=== PATIENT | female | born 1970 | race Caucasian/White ===

== ENCOUNTER 2018-06-18 10:19 | Emergency (ER) | payer SELFPAY ==
--- OUTSIDE RECORDS SUMMARY | 2018-06-18 10:21 | XMS REPORT ---
:1970 [facility] Address [address] [place] [address] [address] [address] Care Team Providers Name Role Phone DR MISTI GRACIA Unavailable Unavailable Problems This patient has no known problems. Allergies, Adverse Reactions, Alerts This patient has no known allergies or adverse reactions. Medications This patient has no known medications. Encounters Start End Encounter Admission Attending Care Care Encounter Date/Time Date/Time Type Type Clinicians Facility Department ID 2017-08-04 Inpatient C YAN GRACIA [facility] [place] [id number] 10:00:00 MISTI
[2018-06-18] MEDS ORDERED: ASPIRIN 81 MG CHEWABLE TABLET ONE (11:22)
[2018-06-18 11:26] LABS: Absolute Lymphocytes (CBC) 2.2 K/uL (0.7-4.9); Absolute Monocytes 0.7 K/uL (0.1-1.3); Absolute Neutrophil 5.7 K/uL (1.8-8.0); Basophils % 0.9 % (0-1.3); Eosinophils % 2.8 % (0-4.4); Hematocrit 42.3 % (36.0-45.0); MCH 27.9 pg (27.0-35.0); MCV 85.7 fL (80-100); MPV 10.4 fL (7.6-11.3); Monocytes % 7.4 % (3.3-12.3); RBC Red Blood Cell Count 4.93 M/uL (3.86-4.86)
--- NOTE | 2018-06-18 11:41 | RAD REPORT ---
EXAM DESCRIPTION: RAD - Chest Single View - 06/18/2018 11:33 am CLINICAL HISTORY: CHEST PAIN Chest pain. COMPARISON: Chest Pa And Lat (2 Views) dated 04/12/2017; CHEST PA AND LAT 2 VIEW dated 05/04/2011 FINDINGS: Portable technique limits examination quality. The lungs are grossly clear. The heart is normal in size. No displaced fractures. IMPRESSION: No acute intrathoracic process suspected.
[2018-06-18 11:51] LABS: Albumin 3.4 g/dL (3.4-5.0); Bilirubin Direct 0.1 mg/dL (0-0.2); Bilirubin Total 0.4 mg/dL (0.2-1.0); Magnesium 2.2 mg/dL (1.8-2.4); Potassium 4.1 mmol/L (3.5-5.1); Protein, Total 7.2 g/dL (6.4-8.2)
[2018-06-18 11:54] LABS: Protime INR 1.06
[2018-06-18 13:11] LABS: Urine Blood NEGATIVE (NEG); Urine Glucose NEGATIVE (NEG); Urine Protein 1+ (NEG); Urine Specific Gravity 1.015 (1.005-1.030); Urine pH 7.5 (5.0-7.0)
--- NOTE | 2018-06-18 13:23 | EKG ---
Test Date: 2018-06-18 Test Time: 11:06:04 Commercial Cleaner: HERMINIA MEASUREMENT RESULTS: Intervals: Rate: 87 [place]: 182 QRSD: 90 QT: 376 QTc: 452 [place]: P: -1 [place]: 182 QRS: -13 T: -4 INTERPRETIVE STATEMENTS: Normal sinus rhythm Normal ECG Compared to ECG 05/04/2011 15:10:44 no significant change from previous ECG Electronically Signed On 06-18-18 13:22:51 CDT by Christian Watson
--- NOTE | 2018-06-18 14:36 | EDPHYS ---
Physician Documentation [facility] Name: Kamila Zavala Age: 48 yrs Sex: Female : 1970 Arrival Date: 06/18/2018 Time: 10:21 Bed 15 Private MD: None, None ED Physician Lyle Vaz HPI: 06/18 11:46 This 48 yrs old Female presents to ER via Ambulatory with complaints of jr8 Shortness Of Breath - Chest Pain. 11:46 The patient or guardian reports chest pain that is located primarily in the substernal jr8 area. Onset: acutely, this morning, today, at 05:00. The pain radiates to right neck. Associated signs and symptoms: Pertinent positives: shortness of breath. The chest pain is described as a pressure. Duration: The patient or guardian reports a single episode. Modifying factors: The symptoms are alleviated by nothing. the symptoms are aggravated by nothing. Severity of pain: At its worst the pain was moderate in the emergency department the pain has improved. The patient has experienced a previous episode. The patient has not recently seen a physician. Patient stated that she woke up this AM with chest tightness and shortness of breath. Tightness was intense for a few minutes then relieved but still with tightness feeling currently. Has had this once before many years ago. Stated that she was observed in hospital but nothing acute was found . 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 - Social history:: Smoking status: Patient/guardian denies using tobacco. - Ebola Screening: : No symptoms or risks identified at this time. ROS: 11:46 Eyes: Negative for injury, pain, redness, and discharge, ENT: Negative for injury, jr8 pain, and discharge, Neck: Negative for injury, pain, and swelling, Abdomen/GI: Negative for abdominal pain, nausea, vomiting, diarrhea, and constipation, Back: Negative for injury and pain, MS/Extremity: Negative for injury and deformity, Skin: Negative for injury, rash, and discoloration, Neuro: Negative for headache, weakness, numbness, tingling, and seizure. 11:46 Cardiovascular: Positive for chest pain, Negative for edema, orthopnea, palpitations, paroxysmal nocturnal dyspnea. 11:46 Respiratory: Positive for shortness of breath, Negative for cough, sputum production, wheezing. Exam: 11:46 Eyes: Pupils equal round and reactive to light, extra-ocular motions intact. Lids and jr8 lashes normal. Conjunctiva and sclera are non-icteric and not injected. Cornea within normal limits. Periorbital areas with no swelling, redness, or edema. ENT: Nares patent. No nasal discharge, no septal abnormalities noted. Tympanic membranes are normal and external auditory canals are clear. Oropharynx with no redness, swelling, or masses, exudates, or evidence of obstruction, uvula midline. Mucous membranes moist. Neck: Trachea midline, no thyromegaly or masses palpated, and no cervical lymphadenopathy. Supple, full range of motion without nuchal rigidity, or vertebral point tenderness. No Meningismus. Cardiovascular: Regular rate and rhythm with a normal S1 and S2. No gallops, murmurs, or rubs. Normal PMI, no JVD. No pulse deficits. Respiratory: Lungs have equal breath sounds bilaterally, clear to auscultation and percussion. No rales, rhonchi or wheezes noted. No increased work of breathing, no retractions or nasal flaring. Abdomen/GI: Soft, non-tender, with normal bowel sounds. No distension or tympany. No guarding or rebound. No evidence of tenderness throughout. Back: No spinal tenderness. No costovertebral tenderness. Full range of motion. Skin: Warm, dry with normal turgor. Normal color with no rashes, no lesions, and no evidence of cellulitis. MS/ Extremity: Pulses equal, no cyanosis. Neurovascular intact. Full, normal range of motion. Neuro: Awake and alert, GCS 15, oriented to person, place, time, and situation. Cranial nerves II-XII grossly intact. Motor strength 5/5 in all extremities. Sensory grossly intact. Cerebellar exam normal. Normal gait. Vital Signs: 10:55 BP 159 / 100; Pulse 89; Resp 16; Temp 97.7; Pulse Ox 100% on R/A; Pain 9/10; hb 12:38 BP 119 / 79; Pulse 72; Resp 20; Pulse Ox 99% on R/A; mb3 13:47 BP 123 / 95; Pulse 75; Resp 18; Pulse Ox 96% on R/A; mb3 14:54 BP 128 / 76; Pulse 72; Resp 18; Pulse Ox 97% on R/A; mb3 MDM: 11:02 Patient medically screened. jr8 14:33 Differential diagnosis: acute myocardial infarction, anxiety, chest wall pain, jr8 cholecystitis, Cholelithiasis gastritis, gastroesophageal reflux disease (GERD), pancreatitis, pneumonia, pulmonary embolus, thoracic aortic disection. The patient was given aspirin in the Emergency Department. Data reviewed: vital signs, nurses notes, lab test result(s), EKG, radiologic studies, plain films, and as a result, I will discharge patient. Data interpreted: Pulse oximetry: on room air is 96 %. Interpretation: normal. Counseling: I had a detailed discussion with the patient and/or guardian regarding: the historical points, exam findings, and any diagnostic results supporting the discharge/admit diagnosis, lab results, radiology results, the need for outpatient follow up, a travel accommodation inspector, to return to the emergency department if symptoms worsen or persist or if there are any questions or concerns that arise at home. ED course: Patient currently without pain and back to baseline. Will send home to f/u with Cardiology. If worse to come back . 06/18 11:05 Order name: Basic Metabolic Panel; Complete Time: 11:52 06/18 11:05 Order name: CBC with Diff; Complete Time: 12:04 06/18 11:05 Order name: LFT's; Complete Time: 11:52 06/18 11:05 Order name: Magnesium; Complete Time: 11:52 06/18 11:05 Order name: NT PRO-BNP; Complete Time: 11:52 06/18 11:05 Order name: PT-INR; Complete Time: 12:04 06/18 11:05 Order name: Troponin (emerg Dept Use Only); Complete Time: 11:51 06/18 11:05 Order name: XRAY Chest (1 view); Complete Time: 11:42 06/18 11:52 Order name: LAB Add On [facility] 06/18 12:29 Order name: D-Dimer; Complete Time: 12:42 EDWY 06/18 12:41 Order name: Urine Dipstick--Ancillary (enter results); Complete Time: 13:22 ag 06/18 12:41 Order name: Urine --Ancillary (enter results); Complete Time: 13:22 ag 06/18 13:22 Order name: Troponin (emerg Dept Use Only); Complete Time: 14:33 [facility] 06/18 11:05 Order name: EKG; Complete Time: 11:05 [facility] 06/18 11:05 Order name: Cardiac monitoring; Complete Time: 14:59 [facility] 06/18 11:05 Order name: EKG - Nurse/Tech; Complete Time: 14:59 [facility] 06/18 11:05 Order name: IV Saline Lock; Complete Time: 14:59 [facility] 06/18 11:05 Order name: Labs collected and sent; Complete Time: 14:59 [facility] 06/18 11:05 Order name: O2 Per Protocol; Complete Time: 14:59 [facility] 06/18 11:05 Order name: O2 Sat Monitoring; Complete Time: 15:00 [facility] 06/18 11:05 Order name: Urine Dipstick-Ancillary (obtain specimen); Complete Time: 12:33 Administered Medications: 11:24 Drug: Aspirin Chewable Tablet 324 mg Route: PO; mb3 14:58 Follow up: Response: No adverse reaction mb3 Disposition: 15:30 Co-signature as Attending Physician, Lyle Vaz MD I agree with the assessment and [facility] plan of care. Disposition: 06/18/18 14:36 Discharged to Home. Impression: Chest pain, unspecified. - Condition is Stable. - Discharge Instructions: Nonspecific Chest Pain, Aspirin and Your Heart. - Medication Reconciliation Form, Thank You Letter, Antibiotic Education, Prescription Opioid Use, Work release form form. - Follow up: Christian Watson MD; When: 2 - 3 days; Reason: Recheck today's complaints, Continuance of care, Re-evaluation by your physician. - Problem is new. - Symptoms have improved. Signatures: Dispatcher [employer] [facility] Lyle Vaz MD MD cha Roszak, Josh, PA PA 8 Adair, Kadie, RN RN hb Milan, Devin, RN RN mb3 Corrections: (The following items were deleted from the chart) 15:00 14:36 06/18/2018 14:36 Discharged to Home. Impression: Chest pain, unspecified. mb3 Condition is Stable. Forms are Medication Reconciliation Form, Thank You Letter, Antibiotic Education, Prescription Opioid Use. Follow up: Christian Watson; When: 2 - 3 days; Reason: Recheck today's complaints, Continuance of care, Re-evaluation by your physician. Problem is new. Symptoms have improved. jr8
--- NOTE | 2018-06-18 14:36 | ER ---
Nurse's Notes [facility] Name: Kaimla Zavala Age: 48 yrs Sex: Female : 1970 Arrival Date: 06/18/2018 Time: 10:21 Bed 15 Private MD: None, None Diagnosis: Chest pain, unspecified Presentation: 06/18 10:53 Presenting complaint: Patient states: SOB and chest tightness x 3 days, swelling of hb extremities upon waking today. Denies cough/fever. Transition of care: patient was not received from another setting of care. Onset of symptoms was June 15, 2018. Risk Assessment: Do you want to hurt yourself or someone else? Patient reports no desire to harm self or others. Initial Sepsis Screen: Does the patient meet any 2 criteria? No. Patient's initial sepsis screen is negative. Does the patient have a suspected source of infection? No. Patient's initial sepsis screen is negative. Care prior to arrival: None. 10:53 Method Of Arrival: Ambulatory hb 10:53 Acuity: PHOEBE 3 hb Triage Assessment: 11:47 General: Appears in no apparent distress. comfortable. General: Appears Behavior is mb3 calm, cooperative, appropriate for age. EENT: No deficits noted. Respiratory: Onset: The symptoms/episode began/occurred 3 days ago. Respiratory: Reports shortness of breath at rest the patient has mild shortness of breath. 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 - Social history:: Smoking status: Patient/guardian denies using tobacco. - Ebola Screening: : No symptoms or risks identified at this time. Screenin:47 Abuse screen: Denies threats or abuse. Nutritional screening: No deficits noted. mb3 Tuberculosis screening: No symptoms or risk factors identified. Fall Risk None identified. Assessment: 11:44 General: Appears in no apparent distress. comfortable, obese, Behavior is calm, mb3 cooperative, appropriate for age. Pain: Complains of pain in chest. Neuro: No deficits noted. Cardiovascular: Reports chest pain, shortness of breath, Heart tones present Capillary refill < 3 seconds Patient's skin is warm and dry. Pulses are all present. Rhythm is sinus rhythm. Respiratory: Airway is patent Respiratory effort is even, unlabored, Respiratory pattern is regular, symmetrical, Breath sounds are clear bilaterally. Breath sounds are diminished in right middle lobe, left lower lobe, right lower lobe, left posterior lower lobe, right posterior middle lobe and right posterior lower lobe. GI: Abdomen is obese, Bowel sounds present X 4 quads. Abd is soft and non tender X 4 quads. : No signs and/or symptoms were reported regarding the genitourinary system. EENT: No signs and/or symptoms were reported regarding the EENT system. Musculoskeletal: No signs and/or symptoms reported regarding the musculoskeletal system. 13:48 Reassessment: Patient appears in no apparent distress at this time. Patient and/or mb3 family updated on plan of care and expected duration. Pain level reassessed. Patient is alert, oriented x 3, equal unlabored respirations, skin warm/dry/pink. Patient denies pain at this time. Patient states feeling better. Patient states symptoms have improved. 13:48 Reassessment: second trop drawn and sent. mb3 Vital Signs: 10:55 BP 159 / 100; Pulse 89; Resp 16; Temp 97.7; Pulse Ox 100% on R/A; Pain 9/10; hb 12:38 BP 119 / 79; Pulse 72; Resp 20; Pulse Ox 99% on R/A; mb3 13:47 BP 123 / 95; Pulse 75; Resp 18; Pulse Ox 96% on R/A; mb3 14:54 BP 128 / 76; Pulse 72; Resp 18; Pulse Ox 97% on R/A; mb3 ED Course: 10:21 Patient arrived in ED. sb2 10:22 None, None is Private Physician. sb2 10:54 Triage completed. hb 10:55 Arm band placed on left wrist. hb 11:02 Jaren Vega PA is PHCP. jr8 11:02 Lyle Vaz MD is Attending Physician. jr8 11:06 Devin Milan RN is Primary Nurse. mb3 11:19 EKG done, by quality assurance technician. reviewed by Jaren BUTTS. at1 11:25 Inserted saline lock: 22 gauge in right antecubital area, using aseptic technique. mb3 Blood collected. 11:32 X-ray completed. Portable x-ray completed in exam room. Patient tolerated procedure jb2 well. 11:33 XRAY Chest (1 view) In Process Unspecified. EDMS 11:46 Patient has correct armband on for positive identification. Placed in gown. Bed in low mb3 position. Call light in reach. Side rails up X 1. dry curer on. Pulse ox on. NIBP on. 12:32 Urine collected: clean catch specimen, bart colored. 5 14:36 Christian Watson MD is Referral Physician. jr8 14:55 No provider procedures requiring assistance completed. IV discontinued, intact, mb3 bleeding controlled, No redness/swelling at site. Pressure dressing applied. 14:58 LAB Add On Sent. mb3 Administered Medications: 11:24 Drug: Aspirin Chewable Tablet 324 mg Route: PO; mb3 14:58 Follow up: Response: No adverse reaction mb3 Outcome: 14:36 Discharge ordered by . jr8 14:56 Discharged to home ambulatory. mb3 14:56 Condition: stable 14:56 Discharge instructions given to patient, Instructed on discharge instructions, follow up and referral plans. Demonstrated understanding of instructions, follow-up care. 15:00 Patient left the ED. mb3 Signatures: Dispatcher [employer] EDMN James Costello jb2 Jaren Vega PA PA jr8 Melani valentino, radio television announcer EKG Tat1 Kadie Adair, RN RN Shaila Fox 5 Marysol Noyola 2 Devin Milan RN RN mb3
== END 2018-06-18 15:00 | disposition home or self-care (01) ==
LOC: ER 10:19
DX: R07.9 Chest pain, unspecified (principal); K21.9 Gastro-esophageal reflux disease without esophagitis
CPT/HCPCS: 36415; 71045; 80048; 80076; 81003; 81025; 83735; 83880; 84484; 85025; 85379; 85610; 93005; 99284

== ENCOUNTER 2018-09-04 07:53 | Emergency (ER) | payer SELFPAY ==
--- OUTSIDE RECORDS SUMMARY | 2018-09-04 08:23 | XMS REPORT ---
:1970 [facility] Address [address] [place] [address] [address] Care Team Providers Name Role Phone DR MISTI GRACIA Unavailable Unavailable Problems This patient has no known problems. Allergies, Adverse Reactions, Alerts This patient has no known allergies or adverse reactions. Medications This patient has no known medications. Encounters Start End Encounter Admission Attending Care Care Encounter Date/Time Date/Time Type Type Clinicians Facility Department ID 2017-08-04 Inpatient C YAN GRACIA [facility] [place] [id number] 10:00:00 MISTI
[2018-09-04 08:38] LABS: Absolute Lymphocytes (CBC) 1.9 K/uL (0.7-4.9); Absolute Monocytes 0.3 K/uL (0.1-1.3); Absolute Neutrophil 2.9 K/uL (1.8-8.0); Basophils % 0.8 % (0-1.3); Lymphocytes % 34.3 % (15.3-44.8); MCH 28.7 pg (27.0-35.0); MCV 85.7 fL (80-100); MPV 10.7 fL (7.6-11.3); Monocytes % 6.1 % (3.3-12.3); RBC Red Blood Cell Count 4.66 M/uL (3.86-4.86)
[2018-09-04 08:51] LABS: BUN Blood Urea Nitrogen 8 mg/dL (7-18); Bicarbonate 29 mmol/L (21-32); Glucose Level 87 mg/dL (74-106); Sodium Level 143 mmol/L (136-145); Troponin (Emerg Dept Use Only) < 0.02 ng/mL (0.0-0.045)
[2018-09-04] MEDS ORDERED: IBUPROFEN 400 MG TAB ONE (08:56)
--- NOTE | 2018-09-04 09:43 | ER ---
Nurse's Notes [facility] Name: Kamila Zavala Age: 48 yrs Sex: Female : 1970 Arrival Date: 09/04/2018 Time: 07:56 Bed 5 Private MD: None, None Diagnosis: Dorsalgia Presentation: 09/04 08:02 Presenting complaint: Patient states: BACK PAIN x YEARS. Transition of care: patient bp was not received from another setting of care. Onset of symptoms is unknown. Risk Assessment: Do you want to hurt yourself or someone else? Patient reports no desire to harm self or others. Initial Sepsis Screen: Does the patient meet any 2 criteria? No. Patient's initial sepsis screen is negative. Does the patient have a suspected source of infection? No. Patient's initial sepsis screen is negative. Care prior to arrival: None. 08:02 Method Of Arrival: Ambulatory bp 08:02 Acuity: PHOEBE 5 bp Triage Assessment: 08:03 General: Appears in no apparent distress. uncomfortable, obese, Behavior is bp cooperative, appropriate for age, anxious. Pain: Complains of pain in back. EENT: No deficits noted. Neuro: Level of Consciousness is awake, alert, obeys commands, Oriented to person, place, time, situation, Appropriate for age. Cardiovascular: No deficits noted. Respiratory: Airway is patent Respiratory effort is even, unlabored, Respiratory pattern is regular, symmetrical. GI: No signs and/or symptoms were reported involving the gastrointestinal system. : No signs and/or symptoms were reported regarding the genitourinary system. Derm: No deficits noted. Musculoskeletal: Circulation, motion, and sensation intact. Range of motion: intact in all extremities. 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 - Social history:: Smoking status: Patient/guardian denies using tobacco. - Ebola Screening: : Patient negative for fever greater than or equal to 101.5 degrees Fahrenheit, and additional compatible Ebola Virus Disease symptoms Patient denies exposure to infectious person Patient denies travel to an Ebola-affected area in the 21 days before illness onset No symptoms or risks identified at this time. Screenin:05 Abuse screen: Denies threats or abuse. Denies injuries from another. Nutritional bp screening: No deficits noted. Tuberculosis screening: No symptoms or risk factors identified. Fall Risk None identified. Assessment: 08:45 General: Appears uncomfortable, Behavior is calm, cooperative. Pain: Complains of pain ss in right mid back Pain currently is 10 out of 10 on a pain scale. at worst was 10 out of 10 on a pain scale. Pain began "years, I've been seen in [facility], [facility] and this ER and I wish they would tell me what's going on. I don't have insurance so I haven't been able to follow up. They just keep giving me pain medicine and at one time they told me I had arthritis." Pt reports that pain flares up at times and at times goes away. This "flare up" began 2 days ago. Is continuous, Alleviated by repositioning, applying pressure to affected area. Neuro: Level of Consciousness is awake, alert, obeys commands, Oriented to person, place, time, situation, Shredder/Granulator Operator are equal bilaterally Facial symmetry appears normal. Cardiovascular: Capillary refill < 3 seconds is brisk in bilateral fingers. Respiratory: Airway is patent Trachea midline Respiratory effort is even, unlabored, Respiratory pattern is regular, symmetrical, Breath sounds are clear bilaterally. GI: Patient currently denies abdominal pain, diarrhea, nausea, vomiting. : No signs and/or symptoms were reported regarding the genitourinary system. EENT: Nares are clear Oral mucosa is moist. Throat is clear. Derm: Skin is intact, is healthy with good turgor, Skin is dry, Skin is pink, warm \\T\\ dry. normal. Musculoskeletal: Circulation, motion, and sensation intact. Range of motion: intact in all extremities, Swelling absent. 08:54 Reassessment: Motrin and ICE pack given to address pain. Patient is grateful. Call ss light remains within reach. 09:46 Reassessment: Pt back from CT. Discharge ordered however CT scan results are not ss resulted yet. Awaiting results. Vital Signs: 08:03 BP 145 / 89; Pulse 71; Resp 18; Temp 98; Pulse Ox 98% ; Weight 127.01 kg; Height 5 ft. bp 9 in. (175.26 cm); 08:45 BP 126 / 93; Pulse 65; Resp 15; Pulse Ox 97% on R/A; Pain 10/10; ss 08:03 Body Mass Index 41.35 (127.01 kg, 175.26 cm) bp Micki Coma Score: 08:45 Eye Response: spontaneous(4). Verbal Response: oriented(5). Motor Response: obeys ss commands(6). Total: 15. ED Course: 07:56 Patient arrived in ED. mr 07:56 None, None is Private Physician. mr 08:03 Triage completed. bp 08:03 Arm band placed on. bp 08:05 Patient has correct armband on for positive identification. Bed in low position. Call bp light in reach. Side rails up X2. 08:07 Rancho Smith MD is Attending Physician. gs 08:08 Uday De La Cruz, KIRILL is Primary Nurse. sg 08:25 Initial lab(s) drawn, by me, sent to lab. Inserted saline lock: 22 gauge in right jb1 antecubital area, using aseptic technique. Blood collected. 08:30 EKG done, by critical care technician. reviewed by Rancho Smith MD. at1 08:36 X-ray completed. Portable x-ray completed in exam room. Patient tolerated procedure sw well. 08:37 XRAY Chest (1 view) In Process Unspecified. EDMS 08:53 ICE pack applied to mid-lower back for comfort. ss 09:42 CT completed. started new iv left ac. Patient moved to CT via stretcher. jg6 09:43 CT Chest W/ Con In Process Unspecified. EDMS 10:03 No provider procedures requiring assistance completed. IV discontinued, intact, ss bleeding controlled, No redness/swelling at site. Pressure dressing applied. Administered Medications: 08:55 Drug: Motrin 800 mg Route: PO; ss 10:07 Follow up: Response: No adverse reaction; Pain is decreased ss Outcome: 09:42 Discharge ordered by . gs 10:03 Discharged to home ambulatory. ss 10:03 Condition: good 10:03 Discharge instructions given to patient, Instructed on discharge instructions, follow up and referral plans. medication usage, Demonstrated understanding of instructions, follow-up care, Prescriptions given X 2. 10:07 Patient left the ED. ss Signatures: Dispatcher [employer] EDMS Matthew Wood jb1 Uday De La Cruz, RN RN sg Chambers, Macy mr Macho, Shayna, RN RN Melani Hernandez, freezer machine operator EKG Tat1 Prerna Griffith Gregory, MD MD gs Peltier, Brian, RN RN bp Garcia, Chichi j6
--- NOTE | 2018-09-04 09:43 | EDPHYS ---
Physician Documentation [facility] Name: Kamila Zavala Age: 48 yrs Sex: Female : 1970 Arrival Date: 09/04/2018 Time: 07:56 Bed 5 Private MD: None, None ED Physician Rancho Smith HPI: 09/04 09:01 This 48 yrs old Female presents to ER via Ambulatory with complaints of Back gs Pain. 09:01 The patient presents with pain that is acute. The symptoms are located in the T9, T10 gs and T11. Onset: The symptoms/episode began/occurred 2 day(s) ago. The pain does not radiate. Associated signs and symptoms: Pertinent negatives: dysuria, incontinence, numbness, vomiting. Modifying factors: the patient symptoms are aggravated by movement. Severity of symptoms: At their worst the symptoms were moderate, in the emergency department the symptoms are unchanged. The patient has experienced similar episodes in the past, multiple times. says got diaphoretic when experienced pain yesterday in car while driving.. 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 - Social history:: Smoking status: Patient/guardian denies using tobacco. - Ebola Screening: : Patient negative for fever greater than or equal to 101.5 degrees Fahrenheit, and additional compatible Ebola Virus Disease symptoms Patient denies exposure to infectious person Patient denies travel to an Ebola-affected area in the 21 days before illness onset No symptoms or risks identified at this time. ROS: 09:01 All other systems are negative. gs Exam: 09:01 Head/Face: Normocephalic, atraumatic. Eyes: Pupils equal round and reactive to light, gs extra-ocular motions intact. Lids and lashes normal. Conjunctiva and sclera are non-icteric and not injected. Cornea within normal limits. Periorbital areas with no swelling, redness, or edema. ENT: Nares patent. No nasal discharge, no septal abnormalities noted. Tympanic membranes are normal and external auditory canals are clear. Oropharynx with no redness, swelling, or masses, exudates, or evidence of obstruction, uvula midline. Mucous membranes moist. Neck: Trachea midline, no thyromegaly or masses palpated, and no cervical lymphadenopathy. Supple, full range of motion without nuchal rigidity, or vertebral point tenderness. No Meningismus. Chest/axilla: Normal chest wall appearance and motion. Nontender with no deformity. No lesions are appreciated. Cardiovascular: Regular rate and rhythm with a normal S1 and S2. No gallops, murmurs, or rubs. Normal PMI, no JVD. No pulse deficits. Respiratory: Lungs have equal breath sounds bilaterally, clear to auscultation and percussion. No rales, rhonchi or wheezes noted. No increased work of breathing, no retractions or nasal flaring. Abdomen/GI: Soft, non-tender, with normal bowel sounds. No distension or tympany. No guarding or rebound. No evidence of tenderness throughout. Skin: Warm, dry with normal turgor. Normal color with no rashes, no lesions, and no evidence of cellulitis. MS/ Extremity: Pulses equal, no cyanosis. Neurovascular intact. Full, normal range of motion. Neuro: Awake and alert, GCS 15, oriented to person, place, time, and situation. Cranial nerves II-XII grossly intact. Motor strength 5/5 in all extremities. Sensory grossly intact. Cerebellar exam normal. Normal gait. 09:01 Constitutional: The patient appears alert, awake. 09:01 ECG was reviewed by the Attending Physician. 09:01 Back: pain, that is mild, of the right mid back, vertebral tenderness, is appreciated at T7 and T8. Vital Signs: 08:03 BP 145 / 89; Pulse 71; Resp 18; Temp 98; Pulse Ox 98% ; Weight 127.01 kg; Height 5 ft. bp 9 in. (175.26 cm); 08:45 BP 126 / 93; Pulse 65; Resp 15; Pulse Ox 97% on R/A; Pain 10/10; ss 08:03 Body Mass Index 41.35 (127.01 kg, 175.26 cm) bp [place] Coma Score: 08:45 Eye Response: spontaneous(4). Verbal Response: oriented(5). Motor Response: obeys ss commands(6). Total: 15. MDM: 08:12 Patient medically screened. 09:01 Differential diagnosis: chronic back pain, Ligament Injury Pyelonephritis. Data reviewed: vital signs, nurses notes. Response to treatment: the patient's symptoms have markedly improved after treatment, and as a result, I will discharge patient. 09:41 Counseling: I had a detailed discussion with the patient and/or guardian regarding: the gs historical points, exam findings, and any diagnostic results supporting the discharge/admit diagnosis, the presence of at least one elevated blood pressure reading (>120/80) during this emergency department visit, lab results, radiology results, the need for outpatient follow up. Special discussion: I have referred the patient to see his PCP for further evaluation of high blood pressure. 09/04 08:12 Order name: Basic Metabolic Panel; Complete Time: 08:57 09/04 08:12 Order name: CBC with Diff; Complete Time: 08:57 09/04 08:12 Order name: Troponin (emerg Dept Use Only); Complete Time: 08:57 09/04 08:12 Order name: XRAY Chest (1 view) 09/04 09:07 Order name: CT Chest W/ Con 09/04 08:12 Order name: EKG; Complete Time: 08:13 09/04 08:12 Order name: Cardiac monitoring; Complete Time: 08:26 09/04 08:12 Order name: EKG - Nurse/Tech; Complete Time: 08:26 09/04 08:12 Order name: IV Saline Lock; Complete Time: 08:26 09/04 08:12 Order name: Labs collected and sent; Complete Time: 08:26 09/04 08:12 Order name: O2 Per Protocol; Complete Time: 08:19 09/04 08:12 Order name: O2 Sat Monitoring; Complete Time: 08:19 gs EC:01 Rate is 7 beats/min. Rhythm is regular. [place] interval is normal. QRS interval is normal. gs QT interval is normal. T waves are Normal. No ST changes noted. Clinical impression: Normal ECG. Interpreted by me. Administered Medications: 08:55 Drug: Motrin 800 mg Route: PO; ss 10:07 Follow up: Response: No adverse reaction; Pain is decreased ss Disposition: 09/04/18 09:42 Discharged to Home. Impression: Dorsalgia. - Condition is Stable. - Discharge Instructions: Back Pain, Adult. - Prescriptions for Prednisone 20 mg Oral Tablet - take 1 tablet by ORAL route once daily for 5 days; 5 tablet. Tylenol- Codeine #4 300-60 mg Oral Tablet - take 1 tablet by ORAL route every 6 hours As needed; 6 tablet. - Work release form, Medication Reconciliation Form, Thank You Letter, Antibiotic Education, Prescription Opioid Use form. - Follow up: Private Physician; When: 2 - 3 days; Reason: Re-evaluation by your physician. Signatures: Dispatcher [employer] EDHI Shayna Pritchard RN RN ss Rancho Smith MD MD Isaac Downing RN RN bp Corrections: (The following items were deleted from the chart) 10:07 09:42 09/04/2018 09:42 Discharged to Home. Impression: Dorsalgia. Condition is Stable. ss Forms are Medication Reconciliation Form, Thank You Letter, Antibiotic Education, Prescription Opioid Use. Follow up: Private Physician; When: 2 - 3 days; Reason: Re-evaluation by your physician.
--- NOTE | 2018-09-04 10:10 | RAD REPORT ---
EXAM DESCRIPTION: CT - Thorax W/ Con - 09/04/2018 9:43 am CLINICAL HISTORY: Back pain, chest pain COMPARISON: CT imaging April 2011 TECHNIQUE: Dynamically enhanced 5 mm thick images of the chest were obtained during administration o f 100 mL non-ionic IV contrast. All CT scans are performed using dose optimization technique as appropriate and may include automated exposure control or mA/KV adjustment according to patient size. FINDINGS: No mass or infiltrate in the lung parenchyma. No pleural thickening or pleural effusion. N o pneumothorax. No chest wall mass or abnormal axillary lymphadenopathy. No abnormal mediastinal or hilar mass or lymphadenopathy seen. Moderately prominent degenerative changes are present throughout the midthoracic spine without an acu te vertebral body finding. Small sclerotic focus in the upper sternum has not changed since 2010. IMPRESSION: No acute or suspicious lung parenchymal finding. No mass or lymphadenopathy seen. Thoracic spine degenerative changes are present but no acute or destructive bone process identifiable .
--- NOTE | 2018-09-04 10:36 | RAD REPORT ---
EXAM DESCRIPTION: RAD - Chest Single View - 09/04/2018 8:38 am CLINICAL HISTORY: Chest pain COMPARISON: June 18 TECHNIQUE: AP portable chest image was obtained 0826 hours . FINDINGS: Lung volumes are low. No peripheral mass or consolidation suspected. Heart size and vascul ature are normal range for shallow inspiration portable exam. No measurable pleural effusion and no p neumothorax. No acute bony abnormality seen. No acute aortic findings suspected. IMPRESSION: No acute cardiopulmonary process. No significant change from comparison.
--- NOTE | 2018-09-04 12:11 | EKG ---
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
== END 2018-09-04 10:07 | disposition home or self-care (01) ==
LOC: ER 07:53
DX: M54.9 Dorsalgia, unspecified (principal); K21.9 Gastro-esophageal reflux disease without esophagitis
CPT/HCPCS: 36415; 71045; 71260; 80048; 84484; 85025; 93005; 99284; Q9967

== ENCOUNTER 2018-09-24 12:15 | Emergency (ER) | payer SELFPAY ==
--- OUTSIDE RECORDS SUMMARY | 2018-09-24 12:18 | XMS REPORT ---
:1970 [facility] Address [address] [place] [address] [address] Care Team Providers Name Role Phone DR MISTI GRACIA Unavailable Unavailable Problems This patient has no known problems. Allergies, Adverse Reactions, Alerts This patient has no known allergies or adverse reactions. Medications This patient has no known medications. Encounters Start End Encounter Admission Attending Care Care Encounter Date/Time Date/Time Type Type Clinicians Facility Department ID 2017-08-04 Inpatient C YAN GRACIA [facility] [place] [id number] 10:00:00 MISTI
--- NOTE | 2018-09-24 16:05 | ER ---
Nurse's Notes [facility] Name: Kamila Zavala Age: 48 yrs Sex: Female : 1970 Arrival Date: 09/24/2018 Time: 12:16 Bed 10 Private MD: Diagnosis: Thoracic spine pain Presentation: 09/24 13:06 Presenting complaint: Patient states: R sided back pain x 3 weeks, worse w/ movement or ph coughing , states " I came in for it a few weeks ago and they gave me Tylenol 3 but I can't take it because it gives me a rash.". Transition of care: patient was not received from another setting of care. Onset of symptoms. Risk Assessment: Do you want to hurt yourself or someone else? Patient reports no desire to harm self or others. Care prior to arrival: None. 13:06 Method Of Arrival: Ambulatory ph 13:06 Acuity: PHOEBE 4 ph 22:57 Initial Sepsis Screen: Does the patient meet any 2 criteria? No. Patient's initial tl3 sepsis screen is negative. Does the patient have a suspected source of infection? No. Patient's initial sepsis screen is negative. Triage Assessment: 22:57 General: Behavior is calm. 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 - Social history:: Smoking status: unknown. - Ebola Screening: : No symptoms or risks identified at this time. Screenin:45 Abuse screen: Denies threats or abuse. Nutritional screening: No deficits noted. tl3 Tuberculosis screening: No symptoms or risk factors identified. Fall Risk None identified. Assessment: 15:45 General: Appears uncomfortable. Pain: Complains of pain in between shoulder blades. tl3 Neuro: Level of Consciousness is awake. 15:45 Reassessment: pt reports that she has had this pain for months was seen here recently tl3 and had a CT done, has no PCP. Cardiovascular: No deficits noted. Vital Signs: 13:09 BP 135 / 82; Pulse 85; Resp 18; Temp 98.1; Pulse Ox 98% on R/A; Pain 7/10; ph 15:45 BP 128 / 72; Pulse 73; Resp 18; Pulse Ox 99% on R/A; tl3 ED Course: 12:16 Patient arrived in ED. as 13:08 Triage completed. ph 13:09 Arm band placed on Patient placed in waiting room, Patient notified of wait time. ph 15:15 Seda Vanessa [facility]C [facility] snw 15:15 Rancho Smith MD is Attending Physician. snw 15:30 Angi Pearl, RN is Primary Nurse. tl3 15:45 No provider procedures requiring assistance completed. Patient did not have IV access tl3 during this emergency room visit. 22:59 Patient has correct armband on for positive identification. tl3 Administered Medications: 16:16 Drug: Flexeril 10 mg Route: PO; tl3 16:17 Follow up: Response: Medication administered at discharge. tl3 16:16 Drug: Lenox 5 mg-325 mg 1 tabs Route: PO; tl3 16:16 Follow up: Response: Medication administered at discharge. tl3 Outcome: 16:05 Discharge ordered by . snw 16:40 Patient left the ED. tl3 22:59 Discharged to home ambulatory. tl3 22:59 Condition: good 22:59 Discharge instructions given to patient, Instructed on discharge instructions, follow up and referral plans. Demonstrated understanding of instructions, follow-up care. Signatures: Seda Vanessa FNP-C FNP-Jessenia Hammer Patricia, RN RN Angi Pearl, RN RN tl3
--- NOTE | 2018-09-24 16:05 | EDPHYS ---
Physician Documentation [facility] Name: Kamila Zavala Age: 48 yrs Sex: Female : 1970 Arrival Date: 09/24/2018 Time: 12:16 Bed 10 Private MD: ED Physician Rancho Smith HPI: 09/24 16:08 This 48 yrs old Female presents to ER via Ambulatory with complaints of Back snw Pain. 16:08 The patient presents with pain that is acute, with no known mechanism of injury, and snw decreased range of motion. The symptoms are located in the left subscapular area, right subscapular area and thoracic area. Onset: The symptoms/episode began/occurred 3 month(s) ago, and became persistent. The problem was sustained from unknown cause. Modifying factors: The patient symptoms are alleviated by nothing, the patient symptoms are aggravated by coughing, lifting, movement. Severity of symptoms: At their worst the symptoms were moderate. The patient has experienced similar episodes in the past, chronically. 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 - Social history:: Smoking status: unknown. - Ebola Screening: : No symptoms or risks identified at this time. ROS: 16:07 Constitutional: Negative for fever, chills, and weight loss, Eyes: Negative for injury, snw pain, redness, and discharge, ENT: Negative for injury, pain, and discharge, Neck: Negative for injury, pain, and swelling, Cardiovascular: Negative for chest pain, palpitations, and edema, Respiratory: Negative for shortness of breath, cough, wheezing, and pleuritic chest pain, Abdomen/GI: Negative for abdominal pain, nausea, vomiting, diarrhea, and constipation, : Negative for injury, bleeding, discharge, and swelling, MS/Extremity: Negative for injury and deformity, Skin: Negative for injury, rash, and discoloration, Neuro: Negative for headache, weakness, numbness, tingling, and seizure. 16:07 Back: Positive for decreased range of motion, pain at rest, pain with movement, of the left subscapular area, right subscapular area and thoracic area. Exam: 16:07 Constitutional: This is a well developed, well nourished patient who is awake, alert, snw and in no acute distress. Head/Face: Normocephalic, atraumatic. Eyes: Pupils equal round and reactive to light, extra-ocular motions intact. Lids and lashes normal. Conjunctiva and sclera are non-icteric and not injected. Cornea within normal limits. Periorbital areas with no swelling, redness, or edema. ENT: Nares patent. No nasal discharge, no septal abnormalities noted. Tympanic membranes are normal and external auditory canals are clear. Oropharynx with no redness, swelling, or masses, exudates, or evidence of obstruction, uvula midline. Mucous membranes moist. Neck: Trachea midline, no thyromegaly or masses palpated, and no cervical lymphadenopathy. Supple, full range of motion without nuchal rigidity, or vertebral point tenderness. No Meningismus. Chest/axilla: Normal chest wall appearance and motion. Nontender with no deformity. No lesions are appreciated. Cardiovascular: Regular rate and rhythm with a normal S1 and S2. No gallops, murmurs, or rubs. Normal PMI, no JVD. No pulse deficits. Respiratory: Lungs have equal breath sounds bilaterally, clear to auscultation and percussion. No rales, rhonchi or wheezes noted. No increased work of breathing, no retractions or nasal flaring. Abdomen/GI: Soft, non-tender, with normal bowel sounds. No distension or tympany. No guarding or rebound. No evidence of tenderness throughout. Skin: Warm, dry with normal turgor. Normal color with no rashes, no lesions, and no evidence of cellulitis. MS/ Extremity: Pulses equal, no cyanosis. Neurovascular intact. Full, normal range of motion. Neuro: Awake and alert, GCS 15, oriented to person, place, time, and situation. Cranial nerves II-XII grossly intact. Motor strength 5/5 in all extremities. Sensory grossly intact. Cerebellar exam normal. Normal gait. Psych: Awake, alert, with orientation to person, place and time. Behavior, mood, and affect are within normal limits. 16:07 Back: pain, that is moderate, of the left subscapular area, right subscapular area and thoracic area, CVA tenderness, is absent, muscle spasm, is appreciated in the left subscapular area and right subscapular area. Vital Signs: 13:09 BP 135 / 82; Pulse 85; Resp 18; Temp 98.1; Pulse Ox 98% on R/A; Pain 7/10; ph 15:45 BP 128 / 72; Pulse 73; Resp 18; Pulse Ox 99% on R/A; tl3 MDM: 15:52 Patient medically screened. snw 16:07 Data reviewed: vital signs, nurses notes. Data interpreted: Pulse oximetry: on room air snw is 99 %. Interpretation: normal. Counseling: I had a detailed discussion with the patient and/or guardian regarding: the historical points, exam findings, and any diagnostic results supporting the discharge/admit diagnosis, the need for outpatient follow up, to return to the emergency department if symptoms worsen or persist or if there are any questions or concerns that arise at home. Special discussion: Based on the history and exam findings, there is no indication for further emergent testing or inpatient evaluation. I discussed with the patient/guardian the need to see the back specialist for further evaluation of the symptoms. I discussed with the patient/guardian the need to see the primary care provider for further evaluation of the symptoms. ED course: + chronic pain, no follow up outside of ED. Administered Medications: 16:16 Drug: Flexeril 10 mg Route: PO; tl3 16:17 Follow up: Response: Medication administered at discharge. tl3 16:16 Drug: [place] 5 mg-325 mg 1 tabs Route: PO; tl3 16:16 Follow up: Response: Medication administered at discharge. tl3 Disposition: 09/24/18 16:05 Discharged to Home. Impression: Thoracic spine pain. - Condition is Stable. - Discharge Instructions: Back Pain, Adult, Chronic Back Pain, Cryotherapy, Heat Therapy, Back Exercises, Back Injury Prevention. - Prescriptions for Cyclobenzaprine 10 mg Oral Tablet - take 1 tablet by ORAL route every 8 hours As needed; 30 tablet. Motrin IB 200 mg Oral Tablet - take 3 tablet by ORAL route every 6 hours As needed as needed with food; 40 tablet. - Medication Reconciliation Form, Thank You Letter, Antibiotic Education, Prescription Opioid Use, Work release form form. - Follow up: Private Physician; When: 2 - 3 days; Reason: Recheck today's complaints, Continuance of care, Re-evaluation by your physician. Follow up: Emergency Department; When: As needed; Reason: Worsening of condition. Addendum: 10/01/2018 11:47 Co-signature as Attending Physician, Rancho Smith MD. g s Signatures: Seda Vanessa, CLINICAL APPEALS RN-C CLINICAL APPEALS RN-Csnw Merced Moreno RN RN Rancho Smith MD MD Angi Pearl, KIRILL RN tl3 Corrections: (The following items were deleted from the chart) 09/24 16:40 16:05 09/24/2018 16:05 Discharged to Home. Impression: Thoracic spine pain. Condition tl3 is Stable. Forms are Medication Reconciliation Form, Thank You Letter, Antibiotic Education, Prescription Opioid Use. Follow up: Private Physician; When: 2 - 3 days; Reason: Recheck today's complaints, Continuance of care, Re-evaluation by your physician. Follow up: Emergency Department; When: As needed; Reason: Worsening of condition. snw
[2018-09-24] MEDS ORDERED: HYDROCODONE/APAP 5/325 MG TAB ONE (16:22)
[2018-09-24] MEDS ORDERED: CYCLOBENZAPRINE 10 MG TAB ONE (16:22)
== END 2018-09-24 16:40 | disposition home or self-care (01) ==
LOC: ER 12:15
DX: M54.6 Pain in thoracic spine (principal); K21.9 Gastro-esophageal reflux disease without esophagitis
CPT/HCPCS: 99283

== ENCOUNTER 2019-06-06 20:01 | Emergency (ER) | payer SELFPAY ==
--- OUTSIDE RECORDS SUMMARY | 2019-06-06 20:04 | XMS REPORT ---
:1970 [facility] Address [address] [place] [address] [address] [address] Care Team Providers Name Role Phone DR MISTI GRACIA Unavailable Unavailable Problems This patient has no known problems. Allergies, Adverse Reactions, Alerts This patient has no known allergies or adverse reactions. Medications This patient has no known medications. Encounters Start End Encounter Admission Attending Care Care Encounter Date/Time Date/Time Type Type Clinicians Facility Department ID 2017-08-04 Inpatient C YAN GRACIA [facility] [place] [id number] 10:00:00 MISTI
[2019-06-06] MEDS ORDERED: METOCLOPRAMIDE 10 MG/2mL INJ ONE (21:11)
[2019-06-06] MEDS ORDERED: KETOROLAC 30 MG/ML INJ ONE (21:11)
[2019-06-06] MEDS ORDERED: DIPHENHYDRAMINE 50 MG/ML VIAL ONE (21:11)
--- NOTE | 2019-06-06 22:20 | ER ---
Nurse's Notes [facility] Name: Kamila Zavala Age: 48 yrs Sex: Female : 1970 Arrival Date: 06/06/2019 Time: 20:04 Bed 30 Private MD: Diagnosis: Headache Presentation: 06/06 20:09 Presenting complaint: Patient states: headache since this morning, took Aleve at 1500 ak1 no relief. pt went to work at 1500, headache continued. pt sent to ER from work for evaluation. Transition of care: patient was not received from another setting of care. Onset of symptoms was June 06, 2019. Risk Assessment: Do you want to hurt yourself or someone else? Patient reports no desire to harm self or others. Initial Sepsis Screen: Does the patient meet any 2 criteria? No. Patient's initial sepsis screen is negative. Does the patient have a suspected source of infection? No. Patient's initial sepsis screen is negative. Care prior to arrival: None. 20:09 Acuity: PHOEBE 3 ak1 20:09 Method Of Arrival: Ambulatory ak1 Triage Assessment: 20:10 General: Appears in no apparent distress. Behavior is. ak1 20:10 General: Behavior is calm, cooperative. Neuro: Level of Consciousness is awake, alert, ak1 obeys commands, Oriented to person, place, time, situation, Glove Boarder are equal bilaterally Moves all extremities. Gait is steady, Speech is normal, Facial symmetry appears normal. 20:20 Pain: Also complains of no other associated symptoms. fu 22:38 Headache History: The patient has had previous headaches. 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 - Social history:: Smoking status: Patient/guardian denies using tobacco. - Ebola Screening: : No symptoms or risks identified at this time. Screenin:27 Abuse screen: Denies threats or abuse. Nutritional screening: No deficits noted. fu Tuberculosis screening: No symptoms or risk factors identified. Fall Risk None identified. Assessment: 20:28 General: Appears uncomfortable, Behavior is calm, cooperative, appropriate for age, fu Denies fever, fatigue, chills. Pain: Complains of pain in head Pain radiates to neck and upper chest area. Pain currently is 9 out of 10 on a pain scale. Quality of pain is described as aching, Pain began today. Neuro: Level of Consciousness is awake, alert, obeys commands, Oriented to person, place, time, situation, Glove Boarder are equal bilaterally Moves all extremities. Gait is steady, Speech is normal, Facial symmetry appears normal, Reports headache in entire. Respiratory: Airway is patent Breath sounds are clear bilaterally. EENT: Denies difficulty swallowing. Derm: Wound noted right forearm, left thumb, right index finger. 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 Musculoskeletal: Range of motion: intact in all extremities. 21:29 Reassessment: Patient is alert, oriented x 3, equal unlabored respirations, skin fu warm/dry/pink. 22:00 Reassessment: Patient is alert, oriented x 3, equal unlabored respirations, skin fu warm/dry/pink. Patient denies pain at this time. Patient states feeling better. Patient states symptoms have improved. Vital Signs: 20:08 BP 136 / 88; Pulse 77; Resp 16; Temp 98; Pulse Ox 100% ; Weight 117.93 kg (R); Height 5 ak1 ft. 9 in. (175.26 cm) (R); Pain 10/10; 20:45 BP 131 / 86; Pulse 73; Resp 16; Temp 98.5; Pulse Ox 98% ; Pain 9/10; fu 22:00 BP 112 / 66; Pulse 69; Resp 16; Temp 98.1; Pulse Ox 99% ; Pain 0/10; fu 20:08 Body Mass Index 38.39 (117.93 kg, 175.26 cm) ak1 ED Course: 20:04 Patient arrived in ED. mr 20:10 Triage completed. ak1 20:10 Arm band placed on Patient placed in an exam room, on a stretcher, Patient notified of ak1 wait time. 20:19 Oc Pichardo RN is Primary Nurse. fu 20:37 Rancho Smith MD is Attending Physician. gs 21:10 Inserted saline lock: 22 gauge in left hand, using aseptic technique. fu 21:15 No provider procedures requiring assistance completed. fu 21:22 CT Head Brain wo Cont In Process Unspecified. EDWI 21:25 CT completed. Patient tolerated procedure well. Patient moved to CT via stretcher. Patient moved back from CT. 21:26 Patient has correct armband on for positive identification. Bed in low position. Call fu light in reach. Side rails up X2. 21:28 warm blanket, provided. fu 22:18 John Paul Ogden MD is Referral Physician. 22:30 IV discontinued, intact, bleeding controlled, No redness/swelling at site. Pressure fu dressing applied. Administered Medications: 21:10 Drug: Reglan 10 mg Route: IVP; Infused Over: 2 mins; Site: left hand; fu 22:31 Follow up: Response: Nausea is decreased fu 21:14 Drug: Benadryl 25 mg Route: IVP; Site: left hand; fu 22:30 Follow up: Response: Marked relief of symptoms fu 21:14 Drug: TORadol - Ketorolac 15 mg Route: IVP; Site: left hand; fu 22:30 Follow up: Response: Pain is decreased fu Outcome: 22:19 Discharge ordered by . gs 22:35 Discharged to home ambulatory. fu 22:35 Condition: improved 22:35 Discharge instructions given to patient, Instructed on discharge instructions, follow up and referral plans. Demonstrated understanding of instructions, follow-up care, Prescriptions given X 1. 22:40 Patient left the ED. fu Signatures: Dispatcher [employer] EDWI ChambersMacy magana mr SpanglerParam Brooklyn Gramajo RN RN ak1 Rancho Smith MD MD Oc Pichardo RN RN fu Corrections: (The following items were deleted from the chart) 21:31 21:29 Pain: fu fu
--- NOTE | 2019-06-06 22:20 | EDPHYS ---
Physician Documentation [facility] Name: Kamila Zavala Age: 48 yrs Sex: Female : 1970 Arrival Date: 06/06/2019 Time: 20:04 Bed 30 Private MD: ED Physician Rancho Smith HPI: 06/06 22:08 This 48 yrs old Female presents to ER via Ambulatory with complaints of gs Headache. 22:08 The patient complains of pain to the forehead. The patient describes the headache as gs throbbing. Onset: The symptoms/episode began/occurred gradually, this morning. Associated signs and symptoms: Pertinent negatives: altered mental status, Photophobia vomiting. Severity of symptoms: At its worst the pain was moderate, in the emergency department the pain is unchanged. Headache History: The patient has had previous headaches and this one is similar to previous episodes. The symptoms are alleviated by nothing. the symptoms are aggravated by nothing. The patient has experienced similar episodes in the past, a few times. The patient has not recently seen a physician. 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 - Social history:: Smoking status: Patient/guardian denies using tobacco. - Ebola Screening: : No symptoms or risks identified at this time. ROS: 22:08 All other systems are negative. gs Exam: 22:08 Head/Face: Normocephalic, atraumatic. Eyes: Pupils equal round and reactive to light, gs extra-ocular motions intact. Lids and lashes normal. Conjunctiva and sclera are non-icteric and not injected. Cornea within normal limits. Periorbital areas with no swelling, redness, or edema. ENT: Nares patent. No nasal discharge, no septal abnormalities noted. Tympanic membranes are normal and external auditory canals are clear. Oropharynx with no redness, swelling, or masses, exudates, or evidence of obstruction, uvula midline. Mucous membranes moist. Neck: Trachea midline, no thyromegaly or masses palpated, and no cervical lymphadenopathy. Supple, full range of motion without nuchal rigidity, or vertebral point tenderness. No Meningismus. Chest/axilla: Normal chest wall appearance and motion. Nontender with no deformity. No lesions are appreciated. Cardiovascular: Regular rate and rhythm with a normal S1 and S2. No gallops, murmurs, or rubs. Normal PMI, no JVD. No pulse deficits. Respiratory: Lungs have equal breath sounds bilaterally, clear to auscultation and percussion. No rales, rhonchi or wheezes noted. No increased work of breathing, no retractions or nasal flaring. Abdomen/GI: Soft, non-tender, with normal bowel sounds. No distension or tympany. No guarding or rebound. No evidence of tenderness throughout. Back: No spinal tenderness. No costovertebral tenderness. Full range of motion. Skin: Warm, dry with normal turgor. Normal color with no rashes, no lesions, and no evidence of cellulitis. MS/ Extremity: Pulses equal, no cyanosis. Neurovascular intact. Full, normal range of motion. Neuro: Awake and alert, GCS 15, oriented to person, place, time, and situation. Cranial nerves II-XII grossly intact. Motor strength 5/5 in all extremities. Sensory grossly intact. Cerebellar exam normal. Normal gait. 22:08 Constitutional: The patient appears alert, awake. Vital Signs: 20:08 BP 136 / 88; Pulse 77; Resp 16; Temp 98; Pulse Ox 100% ; Weight 117.93 kg (R); Height 5 ak1 ft. 9 in. (175.26 cm) (R); Pain 10/10; 20:45 BP 131 / 86; Pulse 73; Resp 16; Temp 98.5; Pulse Ox 98% ; Pain 9/10; fu 22:00 BP 112 / 66; Pulse 69; Resp 16; Temp 98.1; Pulse Ox 99% ; Pain 0/10; fu 20:08 Body Mass Index 38.39 (117.93 kg, 175.26 cm) ak1 MDM: 20:47 Patient medically screened. gs 22:08 Differential diagnosis: migraine, subarachnoid bleed, tension headache, vasomotor gs headache. Data reviewed: vital signs, nurses notes, radiologic studies. Counseling: I had a detailed discussion with the patient and/or guardian regarding: the historical points, exam findings, and any diagnostic results supporting the discharge/admit diagnosis, the need for outpatient follow up. 06/06 20:50 Order name: CT Head Brain wo Cont gs Administered Medications: 21:10 Drug: Reglan 10 mg Route: IVP; Infused Over: 2 mins; Site: left hand; fu 22:31 Follow up: Response: Nausea is decreased fu 21:14 Drug: Benadryl 25 mg Route: IVP; Site: left hand; fu 22:30 Follow up: Response: Marked relief of symptoms fu 21:14 Drug: TORadol - Ketorolac 15 mg Route: IVP; Site: left hand; fu 22:30 Follow up: Response: Pain is decreased fu Disposition: 06/06/19 22:19 Discharged to Home. Impression: Headache. - Condition is Stable. - Discharge Instructions: General Headache Without Cause. - Prescriptions for Fiorinal 50- 325-40 mg Oral Capsule - take 1 capsule by ORAL route every 6 hours As needed - not to exceed 6 capsules per day; 10 capsule. - Medication Reconciliation Form, Thank You Letter, Antibiotic Education, Prescription Opioid Use, Work release form form. - Follow up: Private Physician; When: 2 - 3 days; Reason: Re-evaluation by your physician. Follow up: John Paul Ogden MD; When: 2 - 3 days; Reason: Re-evaluation by your physician. Signatures: Dispatcher [employer] Brooklyn Barrera RN RN ak1 Rancho Smith MD MD Oc Pichardo RN RN fu Corrections: (The following items were deleted from the chart) 22:40 22:19 06/06/2019 22:19 Discharged to Home. Impression: Headache. Condition is Stable. fu Forms are Medication Reconciliation Form, Thank You Letter, Antibiotic Education, Prescription Opioid Use. Follow up: Private Physician; When: 2 - 3 days; Reason: Re-evaluation by your physician. Follow up: John Paul Ogden; When: 2 - 3 days; Reason: Re-evaluation by your physician.
--- NOTE | 2019-06-07 10:38 | RAD REPORT ---
EXAM DESCRIPTION: Head Brain Wo Cont CLINICAL HISTORY: 48 years Female HEADACHE COMPARISON: CT head without contrast dated 05/20/2017 TECHNIQUE: Contiguous axial images of the brain were obtained without the administration of intraven ous contrast.This exam was performed according to our departmental dose-optimization program which in cludes use of Automated Exposure Control, adjustment of the mA and/or kV according to patient size an d/or use of iterative reconstruction technique. FINDINGS: Brain: No acute intracranial hemorrhage. No acute territorial infarct. No extra-axial sharona ection. No mass effect or herniation. Mild prominence of the bifrontal sulci. Ventricles: Within normal limits in size. Globes and orbits: No acute abnormality. Bones: No acute osseous finding. Paranasal sinuses: Paranasal sinuses are clear. Mastoid air cells: Well pneumatized. Soft tissues: Within normal limits IMPRESSION: No acute intracranial abnormality. Electronically signed by: Ehsan Sawyer DO 06/06/2019 9:34 PM CDT Due to temporary technical issues with the PACS/Fluency reporting system, reports are being signed by the in house radiologist as a courtesy to ensure prompt reporting. The interpreting radiologist is f ully responsible for the content of the report.
== END 2019-06-06 22:40 | disposition home or self-care (01) ==
LOC: ER 20:01
DX: R51 Headache (principal)
CPT/HCPCS: 70450; 96374; 96375; 99284; J2765

== ENCOUNTER 2024-09-25 10:19 | Emergency (ER) | payer BC ==
--- OUTSIDE RECORDS SUMMARY | 2024-09-25 10:22 | XMS REPORT | Continuity of Care Document ---
Author Name Unknown Address [address] [facility] [address] [place] [address] [facility] Address [address] [facility] [address] [place] [address] Care Team Providers Care Aircraft Time Clerk Name Role Phone BAUTISTA MORRELL Primary Care Physician Unavaila RYLAN Gamble Attending Clinician Unavailable DR MISTI GRACIA Attending Clinician Unavailable EFE ORTA Attending Clinician Unavailable EFE ORTA Attending Clinician Unavailable Efe Orta DO Attending Clinician [phone] GC_GCBZW_Kadiyala_S Attending Clinician Unavaila WAGNER [place] Attending Clinician Unavailable Wagner Aguirre MD Attending Clinician [phone] Doctor Unassigned, [place] Attending Clinician U navailable RADIOLOGY Attending Clinician Unavailable Radiology Attending Clinician Unavailable Yolanda Michel MD Attending Clinician [phone] Davar_P Attending Clinician Unavailable Yuliet Attending Clinician Unavailable YOLANDA MICHEL Attending Clinician Unavailable KATIE BERNARDO Attending Clinician Unavaila Katie Austin F Attending Clinician [phone] JED CORRALES Attending Clinician UnavailJed Alvarado MD Attending Clinician [phone] TAO GUERRERO Attending Clinician Unavailable Tao Guerrero MD Attending Clinician [phone] Bryan Badillo MD Attending Clinician [phone] Rufina Bell DO Attending Clinician [phone] BRYAN BADILLO Attending Clinician Unavaila ble Lab, Adc Fam Pob I Attending Clinician Unavailab Rylan Calero MD Attending Clinician [phone] Mimi Packer Attending Clinician [phone] DARSHAN FERNANDEZ Attending Clinician Unavailable Blas Avalos MD Attending Clinician [phone] [facility], [facility] Attending Clinician Unav ailable Kayley Lancaster MD Attending Clinician KAYLEY LANCASTER Attending Clinician Kristen vailaRYLAN Gamble Admitting Clinician Unavailable DR MISTI GRACIA Admitting Clinician Unavailable GC_GCBZW_Kajennyala_S Admitting Clinician Unavaila SHAINA Ibarra Admitting Clinician Unavailable Davar_P Admitting Clinician Unavailable Yuliet Admitting Clinician Unavailable KATIE BERNARDO Admitting Clinician Unavaila ble Payers Payer Name Policy Type Policy Number Effective Date Expirati on Date Source BLUE ESSENTIALS HMO [id number] 00:00:00 [place] [id number] 2020 00:00:00 Problems Condition Name Condition Details Condition Category Status Onset Date Resolution Date Last Treatment Date Treating Clinician Comments Source Vitamin D deficiency Vitamin D deficiency Disease Active 06-10 00:00: 00 [facility] Screening for colorectal cancer Screening for colorectal cancer Disease Active 05-28 00:00: 00 Overview: Formattin g of this note might be different from the original. 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 Disease Active 03-05 00:00: 00 [facility] GERD (gastroeso phageal reflux disease) GERD (gastroeso phageal reflux disease) Disease Active [facility] Bronchitis Bronchitis Disease Resolve d 03-05 00:00: 00 2021-04-26 00:00:00 2021-04-26 20:41:31 [facility] Congestion of nasal sinus Congestion of nasal sinus Disease Resolve d 03-05 00:00: 00 2021-04-26 00:00:00 2021-04-26 20:41:30 [facility] Cough Cough Disease Resolve d 03-05 00:00: 00 2021-04-26 00:00:00 2021-04-26 20:41:33 [facility] Fever and chills Fever and chills Disease Resolve d 03-05 00:00: 00 2021-04-26 00:00:00 2021-04-26 20:41:34 [facility] Allergies, Adverse Reactions, Alerts Allergy Name Allergy Type Status Severity Reaction(s) Onset Date Inactive Date Treating Clinician Comments Source Iodine Propensi ty to adverse reaction s Active Swelling 05-13 00:00: 00 [facility] IODINE DRUG INGREDI Active Swelling 05-13 00:00: 00 [facility] Iodine Allergy to substanc e Active Anaphylaxis [facility] Social History Social Habit Start Date Stop Date Quantity Comments Source Gender [facility] History of tobacco use Cigarette Smoker [facility] History SDOH Alcohol Frequency [facility] History SDOH Alcohol Std Drinks [facility] History SDOH Alcohol Binge [facility] Alcoholic beverage intake 2024-08-18 00:00:00 2024-08-18 00:00:00 Current drinker of alcohol (finding) [facility] Exposure to SARS-CoV-2 (event) 2022-01-05 00:00:00 2022-02-04 09:04:00 Not sure [facility] Cigarettes smoked current (pack per day) - Reported 2021-10-05 00:00:00 2021-10-05 00:00:00 [facility] Tobacco use and exposure 2021-10-05 00:00:00 2021-10-05 00:00:00 Smokeless tobacco non-user [facility] Alcohol intake 2021-06-07 00:00:00 2021-06-07 00:00:00 Current drinker of alcohol (finding) [facility] History of Social function 2021-04-13 00:00:00 2021-04-13 00:00:00 [facility] Alcohol Comment 2016-07-25 00:00:00 2016-07-25 00:00:00 rarely [facility] Sex assigned at 1970 00:00:00 1970 00:00:00 [facility] Smoking Status Start Date Stop Date Source Former Smoker [facility] Occasional tobacco smoker 2021-10-05 00:00:00 [facility] Never smoked tobacco [facility] Medications Ordered Medication Name Filled Medication Name Start Date Stop Date Current Medication? Ordering Clinician Indication Dosage Frequency Signature (SIG) Comments Components Source HYDROcodone -acetaminop hen (NORCO) 10-325 mg tablet 1 tablet 08-18 11:30: 00 08-18 10:30 :00 No 1{tbl} 1 tablet, Oral, ONCE, 1 dose, On 08/18/24 at 0630, Routine [facility] methocarbam oL (ROBAXIN) tablet 1,000 mg 08-18 10:30: 00 08-18 10:30 :00 No 1000mg 1,000 mg, Oral, ONCE, 1 dose, On 08/18/24 at 0530, ED [facility] naproxen sodium 550 mg tablet 08-18 00:00: 00 Yes [id number] 550mg Take 1 tablet by mouth in the morning and 1 tablet in the evening. Take with meals. [facility] methylPREDN ISolone 4 mg tablets 08-18 00:00: 00 Yes [id number] Take by mouth SEE-INSTRU CTIONS. follow package directions [facility] methocarbam oL 500 mg tablet 08-18 00:00: 00 08-24 04:59 :00 Yes [id number] 500mg Take 1 tablet by mouth in the morning and 1 tablet at noon and 1 tablet in the evening. Do all this for 5 days. [facility] FENTanyl PF (SUBLIMAZE (PF)) injection 75 mcg 07-25 20:30: 00 07-25 19:42 :00 No 75ug 75 mcg, Intramuscu lar, ONCE, 1 dose, On Mon07/25/23 at 1530, ED [facility] ketorolac (TORADOL) injection 30 mg 07-25 20:15: 00 07-25 19:39 :00 No 30mg 30 mg, Intramuscu lar, ONCE, 1 dose, On Mon07/25/23 at 1515, ED [facility] ibuprofen 800 mg tablet 07-25 00:00: 00 Yes [id number] 800mg Take 1 tablet by mouth every 8 (eight) hours. [facility] methocarbam oL 750 mg tablet 07-25 00:00: 00 08-18 00:00 :00 No [id number] 750mg Take 1 tablet by mouth 4 (four) times daily. [facility] methylPREDN ISolone acetate (DEPO-MEDRO L) injection 80 mg 02-04 22:45: 00 02-04 21:42 :00 No [id number] 80mg [facility] traMADoL 50 mg tablet 02-01 00:00: 00 Yes [id number] 50mg Take 1 tablet by mouth every 6 (six) hours as needed for Pain (scale 7-10). Indication s: acute pain [facility] ibuprofen 600 mg tablet 02-01 00:00: 00 07-25 00:00 :00 No [id number] 3 600mg Take 1 tablet by mouth every 6 (six) hours as needed for Pain (scale 4-6). [facility] methocarbam oL (ROBAXIN) 500 mg tablet 2020-11 00:00: 00 04-19 04:59 :00 No [id number] 500mg Take 1 tablet by mouth 2 (two) times daily as needed for Pain (scale 7-10) for up to 180 days. [facility] LORazepam 1 mg tablet 2020-11 00:00: 00 Yes [id number] 1mg Take 1 tablet by mouth as needed (x 1 dose 1 hr prior to MRI). [facility] dicyclomine 20 mg tablet 8-07 00:00: 00 Yes [id number] 20mg Take 1 tablet by mouth every 6 (six) hours as needed for Abdominal pain. [facility] LORazepam 1 mg tablet 712 00:00: 00 09-13 00:00 :00 No 1mg Take 1 tablet by mouth as needed (x 1 dose 1 hr prior to MRI). [facility] omeprazole 20 mg tablet 04-13 15:17: 46 Yes 1 (one) time each day [facility] nystatin 100,000 unit/gram ointment 04-13 00:00: 00 Yes [id number] Apply to area(s) 2 (two) times daily. [facility] cyclobenzap rine 10 mg tablet 04-01 00:00: 00 Yes [facility] gabapentin 100 mg capsule 2-04 00:00: 00 01-01 05:59 :00 No 100mg Take 100 mg by mouth. [facility] albuterol 90 mcg/actuati on inhaler 2019-11 00:00: 00 Yes [id number] 2{puff} Inhale 2 Puffs every 4 (four) hours as needed for Wheezing or Shortness of Breath. [facility] gabapentin 600 mg tablet Take 1 tablet every day by oral route at bedtime for 30 days. gabapentin 600 mg tablet Take 1 tablet every day by oral route at bedtime for 30 days. No 1 Q1D gabapentin 600 mg tablet Take 1 tablet every day by oral route at bedtime for 30 days. [facility] gabapentin 600 mg tablet TAKE 1 TABLET BY MOUTH EVERY DAY AT BEDTIME gabapentin 600 mg tablet TAKE 1 TABLET BY MOUTH EVERY DAY AT BEDTIME No gabapentin 600 mg tablet TAKE 1 TABLET BY MOUTH EVERY DAY AT BEDTIME [facility] hydrocodone 10 mg-acetamin ophen 325 mg tablet TAKE 1 TABLET BY MOUTH EVERY 6 HOURS FOR 10 DAYS NEEDED hydrocodone 10 mg-acetamin ophen 325 mg tablet TAKE 1 TABLET BY MOUTH EVERY 6 HOURS FOR 10 DAYS NEEDED No hydrocodon e 10 mg-acetami nophen 325 mg tablet TAKE 1 TABLET BY MOUTH EVERY 6 HOURS FOR [address] [facility] Immunizations Ordered Immunization Name Filled Immunization Name Date Status Comments Source TDAP 2021-06-07 00:00:00 Completed [facility] TDAP 2021-06-07 00:00:00 Completed [facility] TDAP 2021-06-07 00:00:00 Completed [facility] TDAP 2021-06-07 00:00:00 Completed [facility] TDAP 2021-06-07 00:00:00 Completed [facility] TDAP 2021-06-07 00:00:00 Completed [facility] TDAP 2021-06-07 00:00:00 Completed [facility] SARS-COV-2 COVID-19 CRISTIANO/J&J VACCINE 2021-02-05 00:00:00 Completed [facility] SARS-COV-2 COVID-19 CRISTIANO/J&J VACCINE 2021-02-05 00:00:00 Completed [facility] SARS-COV-2 COVID-19 CRISTIANO/J&J VACCINE 2021-02-05 00:00:00 Completed [facility] SARS-COV-2 COVID-19 CRISTIANO/J&J VACCINE 2021-02-05 00:00:00 Completed [facility] SARS-COV-2 COVID-19 CRISTIANO/J&J VACCINE 2021-02-05 00:00:00 Completed [facility] SARS-COV-2 COVID-19 CRISTIANO/J&J VACCINE 2021-02-05 00:00:00 Completed [facility] SARS-COV-2 COVID-19 CRISTIANO/J&J VACCINE 2021-02-05 00:00:00 Completed [facility] COVID-19 vaccine, vector-nr, rS-Ad26, PF, 0.5 mL (Cristiano) COVID-19 vaccine, vector-nr, rS-Ad26, PF, 0.5 mL (Cristiano) 2021-02-05 00:00:00 Completed [facility] COVID-19 vaccine, vector-nr, rS-Ad26, PF, 0.5 mL (Cristiano) COVID-19 vaccine, vector-nr, rS-Ad26, PF, 0.5 mL (Cristiano) 2021-02-05 00:00:00 Completed [facility] SARS-COV-2 COVID-19 CRISTIANO/J&J VACCINE Unknown Completed [facility] TDAP Unknown Completed [facility] SARS-COV-2 COVID-19 CRISTIANO/J&J VACCINE Unknown Completed [facility] TDAP Unknown Completed [facility] SARS-COV-2 COVID-19 CRISTIANO/J&J VACCINE Unknown Completed [facility] TDAP Unknown Completed [facility] SARS-COV-2 COVID-19 CRISTIANO/J&J VACCINE Unknown Completed [facility] TDAP Unknown Completed [facility] SARS-COV-2 COVID-19 CRISTIANO/J&J VACCINE Unknown Completed [facility] TDAP Unknown Completed [facility] Vital Signs Vital Name Observation Time Observation Value Comments S ource Systolic blood pressure 2024-08-18 10:07:00 162 mm[Hg] [facility] Diastolic blood pressure 2024-08-18 10:07:00 102 mm[Hg] [facility] Heart rate 2024-08-18 10:07:00 80 /min [facility] Body temperature 2024-08-18 10:07:00 36.61 [place] [facility] Respiratory rate 2024-08-18 10:07:00 16 /min [facility] Body height 2024-08-18 10:07:00 175.3 cm [facility] Body weight 2024-08-18 10:07:00 131.543 kg [facility] BMI 2024-08-18 10:07:00 42.83 kg/m2 [facility] Oxygen saturation in Arterial blood by Pulse oximetry 2024-08-18 10:07:00 99 /min [facility] Systolic blood pressure 2023-07-25 19:11:00 167 mm[Hg] [facility] Diastolic blood pressure 2023-07-25 19:11:00 89 mm[Hg] [facility] Heart rate 2023-07-25 19:11:00 80 /min [facility] Body temperature 2023-07-25 19:11:00 36.83 [place] [facility] Respiratory rate 2023-07-25 19:11:00 20 /min [facility] Body weight 2023-07-25 19:11:00 127.007 kg [facility] BMI 2023-07-25 19:11:00 41.35 kg/m2 [facility] Oxygen saturation in Arterial blood by Pulse oximetry 2023-07-25 19:11:00 99 /min [facility] BP Diastolic 2022-10-18 00:00:00 84 mm[Hg] [facility] Height 2022-10-18 00:00:00 67 [in_i] [facility] BMI (Body Mass Index) 2022-10-18 00:00:00 45.3 kg/m2 [place] [facility] BP Systolic 2022-10-18 00:00:00 126 mm[Hg] [facility] Body Weight 2022-10-18 00:00:00 289 [lb_av] [facility] BP Diastolic 2022-10-06 00:00:00 86 mm[Hg] [facility] Height 2022-10-06 00:00:00 67 [in_i] [facility] BMI (Body Mass Index) 2022-10-06 00:00:00 45.6 kg/m2 [place] [facility] BP Systolic 2022-10-06 00:00:00 138 mm[Hg] [facility] Body Weight 2022-10-06 00:00:00 291.2 [lb_av] [facility] Body temperature 2022-02-04 15:15:00 36 [place] [facility] Body height 2022-02-04 15:15:00 175.3 cm [facility] Body weight 2022-02-04 15:15:00 130.636 kg [facility] BMI 2022-02-04 15:15:00 42.53 kg/m2 [facility] Procedures Procedure Date / Time Performed Performing Clinician Source ASSIGNMENT OF BENEFITS 2023-07-25 19:47:59 Docto r Unassigned, [place] [facility] NOTICE OF PRIVACY PRACTICES 2023-07-25 19:06:58 Doctor Unassigned, [place] [facility] CONSENT/REFUSAL FOR DIAGNOSIS AND TREATMENT 2023-07-25 19:03:49 Doctor Unassigned, [place] [facility] ASSIGNMENT OF BENEFITS 2023-01-11 19:57:45 Docto r Unassigned, [place] [facility] WORKERS COMPENSATION 2022-12-22 06:01:00 Doctor Unassigned, [place] [facility] MAMMO, screening, tomosynthesis, bilateral, w/ CAD 2022-10-18 00:00:00 [facility] US, upper extremity, nonvascular, limited 2022-10-06 00:00:00 [facility] Plan of Care Planned Activity Planned Date Details Comments Source Diagnostic Test Pending 2022-10-18 00:00:00 CMP, serum or plasma [code = CMP, serum or plasma] [facility] Diagnostic Test Pending 2022-10-18 00:00:00 TSH, serum or plasma [code = TSH, serum or plasma] [facility] Diagnostic Test Pending 2022-10-18 00:00:00 lipid panel, serum [code = lipid panel, serum] [facility] Diagnostic Test Pending 2022-10-18 00:00:00 fecal occult blood, stool [code = fecal occult blood, stool] [facility] Encounters Start Date/Time End Date/Time Encounter Type Admission Type Attending Clinicians Care Facility Care Department Encounter ID Source 2021-09-27 13:49:59 Emergency [facility] [id number] [facility] 2021-09-27 10:31:19 Outpatient RYLAN JOE [facility] [id number] [facility] 2021-09-25 04:09:41 Emergency [facility] [id number] [facility] 2017-08-04 10:00:00 Inpatient MISTI GALEANA [facility] [id number] [facility] 2024-08-18 05:11:00 2024-08-18 05:41:00 Emergency X NIC ORTAEFE HERRERA [facility] [id number] [facility] 2024-08-18 05:11:00 2024-08-18 05:41:00 Emergency Efe Orta [facility] [id number] 350.1.13.10 4.2.7.2.686 [id number] [facility] 2023-09-26 00:00:00 2023-09-26 00:00:00 Outpatient GC_GCBZW_Ka diyala_S PRIV [facility] [id number] [facility] 2023-07-25 14:12:00 2023-07-25 14:59:00 Emergency X AGUIRREZULMAWAGNER [facility] ERT [id number] [facility] 2023-07-25 14:12:00 2023-07-25 14:59:00 Emergency AguirreWagner [facility] 1.840.114 350.1.13.10 4.2.7.2.686 [id number] [facility] 2023-07-25 00:00:00 2023-07-25 00:00:00 Orders Only Doctor Unassigned, [place] [facility] 1.84.114 350.1.13.10 4.2.7.2.686 [id number] [facility] 2023-01-11 13:58:33 2023-01-11 23:59:00 Outpatient R RADIOLOGY [facility] [id number] [facility] 2023-01-11 13:58:33 2023-01-11 23:59:00 Hospital Encounter Radiology [facility] 1.840.114 350.1.13.10 4.2.7.2.686 [id number] [facility] 2023-01-11 00:00:00 2023-01-11 00:00:00 Orders Only Doctor Unassigned, [place] [facility] [id number] 350.1.13.10 4.2.7.2.686 [id number] [facility] 2022-12-22 00:00:00 2022-12-22 00:00:00 Telephone Yolanda Michel [facility] [id number] 350.1.13.10 4.2.7.2.686 [id number] [facility] 2022-12-22 00:00:00 2022-12-22 00:00:00 Orders Only Doctor Unassigned, [place] [facility] [id number] 350.1.13.10 4.2.7.2.686 [id number] [facility] 2022-10-19 00:00:00 2022-10-19 00:00:00 Outpatient Davar_P VFP VFP [id number] [facility] 2022-10-19 00:00:00 2022-10-19 00:00:00 Outpatient Davar_P VFP VFP [id number] [facility] 2022-10-19 00:00:00 2022-10-19 00:00:00 Outpatient Davar_P VFP VFP [id number] [facility] 2022-10-18 00:00:00 2022-10-18 00:00:00 Outpatient Drum_T_DAL VFP VFP [id number] [facility] 2022-10-18 00:00:00 2022-10-18 00:00:00 Shania Boyd MD: [address], [address], [place] [address] , Ph. VFP [place] [facility] - [place] - VM_HOU_Memo ria [id number] [facility] 2022-10-17 00:00:00 2022-10-17 00:00:00 Outpatient Davar_P VFP VFP [id number] [facility] 2022-10-15 00:00:00 2022-10-15 00:00:00 Outpatient Drum_T_DAL VFP VFP [id number] [facility] 2022-10-06 00:00:00 2022-10-06 00:00:00 Outpatient Davar_P VFP VFP [id number] [facility] 2022-10-06 00:00:00 2022-10-06 00:00:00 Shania Boyd MD: [address], [address], [place] [address] , Ph. VFP [place] [facility] [place] - [facility]_Memo rial [id number] [facility] 2022-10-03 00:00:00 2022-10-03 00:00:00 Outpatient Drum_T_DAL VFP VFP [id number] [facility] 2022-02-04 08:50:00 2022-02-04 10:10:08 Office Visit Yolanda Michel [facility] [place] [facility] [address].840.114 350.1.13.10 4.2.7.2.686 [id number] [facility] 2022-02-04 08:50:00 2022-02-04 10:10:08 Outpatient YOLANDA CÁRDENAS [facility] [id number] [facility] 2022-02-04 08:50:00 2022-02-04 10:10:08 Outpatient YOLANDA CÁRDENAS [facility] [id number] [facility] 2022-02-04 08:50:00 2022-02-04 08:50:00 Outpatient YOLANDA CÁRDENAS [facility] [id number] [facility] 2022-02-04 00:00:00 2022-02-04 00:00:00 Letter (Out) Yolanda Michel [facility] [place] [id number] 350.1.13.10 4.2.7.2.686 [id number] [facility] 2022-02-01 14:41:00 2022-02-01 19:29:00 Emergency X KATIE BERNARDO [facility] [id number] [facility] 2022-02-01 14:41:00 2022-02-01 19:29:00 Emergency Katie Bernardo F [facility] 1..114 350.1.13.10 4.2.7.2.686 [id number] [facility] 2022-02-01 14:41:00 2022-02-01 19:29:00 Emergency X KATIE BERNARDO [facility] [id number] [facility] 2022-01-25 09:30:00 2022-01-25 09:30:00 Outpatient R JED CORRALES [facility] [id number] [facility] 2021-10-20 09:00:00 2021-10-20 10:34:33 Outpatient R JED CORRALES [facility] [id number] [facility] 2021-10-20 09:00:00 2021-10-20 10:34:33 Outpatient R JED CORRALES [facility] [id number] [facility] 2021-10-20 08:43:33 2021-10-20 10:34:33 Office Visit Jed Corrales [facility] 1.114 350.1.13.10 4.2.7.2.686 [id number] [facility] 2021-10-20 00:00:00 2021-10-20 00:00:00 Orders Only Doctor Unassigned, [place] [facility] 1..114 350.1.13.10 4.2.7.2.686 [id number] [facility] 2021-10-05 16:00:00 2021-10-05 16:00:00 Outpatient R TAO GUERRERO [facility] [id number] [facility] 2021-10-05 16:00:00 2021-10-05 16:00:00 Outpatient R TAO GUERRERO [facility] [id number] [facility] 2021-10-05 15:32:19 2021-10-05 15:52:19 Office Visit Juan A [facility] 1.840.114 350.1.13.10 4.2.7.2.686 [id number] [facility] 2021-09-13 00:00:00 2021-09-13 00:00:00 Telephone Bryan Badillo A [facility] Medical Office Building 1.840.114 350.1.13.10 4.2.7.2.686 [id number] [facility] 2021-09-11 00:00:00 2021-09-11 00:00:00 Patient Secure Msg Doctor Unassigned, [place] [facility] 1..114 350.1.13.10 4.2.7.2.686 [id number] [facility] 2021-09-07 13:40:00 2021-09-07 13:40:00 Outpatient R TAO GUERRERO [facility] [id number] [facility] 2021-09-07 13:40:00 2021-09-07 13:30:33 Outpatient R TAO GUERRERO [facility] [id number] [facility] 2021-09-07 12:53:53 2021-09-07 13:30:33 Office Visit Juan A [facility] 1.84.114 350.1.13.10 4.2.7.2.686 [id number] [facility] 2021-09-07 00:00:00 2021-09-07 00:00:00 [id number] 350.1.13.10 4.2.7.2.686 [id number] [facility] 2021-09-07 00:00:00 2021-09-07 00:00:00 Orders Only Doctor Unassigned, [place] [facility] 1.2840.114 350.1.13.10 4.2.7.2.686 [id number] [facility] 2021-07-28 00:00:00 2021-07-28 00:00:00 Refill Bryan Badillo [facility] Medical Office Building 1.284.114 350.1.13.10 4.2.7.2.686 [id number] [facility] 2021-07-07 00:00:00 2021-07-07 00:00:00 Patient Secure Msg Doctor Unassigned, [place] [facility] MEDICAL OFFICE BUILDING 1.2840.114 350.1.13.10 4.2.7.2.686 [id number] [facility] 2021-07-03 09:07:00 2021-07-03 11:06:00 Emergency Rufina Bell [facility] 1.2840.114 350.1.13.10 4.2.7.2.686 [id number] [facility] 2021-07-01 08:45:23 2021-07-01 23:59:00 Hospital Encounter Bryan Badillo [facility] 1.2840.114 350.1.13.10 4.2.7.2.686 [id number] [facility] 2021-07-01 00:00:00 2021-07-01 00:00:00 Outpatient R BRYAN BADILLO [facility] [id number] [facility] 2021-06-25 09:45:00 2021-06-25 09:45:00 Outpatient R RYLAN JOE [facility] [id number] [facility] 2021-06-12 00:00:00 2021-06-12 00:00:00 Patient Secure Msg Doctor Unassigned, [place] [facility] 1..114 350.1.13.10 4.2.7.2.686 [id number] [facility] 2021-06-09 08:25:07 2021-06-09 08:45:07 Dermatology Nurse Practitioner Visit Lab, [facility] Pob Bryan Song [facility] Office Building One .84.114 350.1.13.10 4.2.7.2.686 [id number] [facility] 2021-06-09 08:20:00 2021-06-09 08:20:00 Outpatient R [facility] [id number] [facility] 2021-06-09 00:00:00 2021-06-09 00:00:00 Telephone Rylan Joe [facility] 1.840.114 350.1.13.10 4.2.7.2.686 [id number] [facility] 2021-06-07 11:03:46 2021-06-07 12:14:34 Office Visit Bryan Badillo [facility] Office Building One ..114 350.1.13.10 4.2.7.2.686 [id number] [facility] 2021-06-07 11:15:00 2021-06-07 11:15:00 Outpatient R BRYAN BADILLO [facility] [id number] [facility] 2021-06-07 09:40:00 2021-06-07 10:00:00 Dermatology Nurse Practitioner Visit Lab, [facility] Brainb Bryan Song [facility] Office Building One 1.114 350.1.13.10 4.2.7.2.686 [id number] [facility] 2021-06-07 00:00:00 2021-06-07 00:00:00 Patient Secure Msg Doctor Unassigned, [place] [facility] 1..114 350.1.13.10 4.2.7.2.686 [id number] [facility] 2021-06-07 00:00:00 2021-06-07 00:00:00 Orders Only Doctor Unassigned, [place] [facility] 1.114 350.1.13.10 4.2.7.2.686 [id number] [facility] 2021-06-04 11:15:00 2021-06-04 11:15:00 Outpatient R BRYAN BADILLO [facility] [id number] [facility] 2021-05-28 00:00:00 2021-05-28 00:00:00 Prep For Surgery Mimi Perez [facility] Building 1..114 350.1.13.10 4.2.7.2.686 [id number] [facility] 2021-05-27 10:00:00 2021-05-27 13:50:52 Outpatient R RYLAN JOE [facility] [id number] [facility] 2021-05-27 09:42:31 2021-05-27 10:12:31 Office Visit Rylan Joe [facility] Building 1.114 350.1.13.10 4.2.7.2.686 [id number] [facility] 2021-05-27 10:00:00 2021-05-27 10:00:00 Outpatient RYLAN GONZALEZ [facility] [id number] [facility] 2021-05-19 00:00:00 2021-05-19 00:00:00 Telephone Bryan Badillo Jim [facility] Office Building One 1.0.114 350.1.13.10 4.2.7.2.686 [id number] [facility] 2021-05-12 00:00:00 2021-05-12 00:00:00 Telephone Bryan Badillo [facility] Office Building One ..114 350.1.13.10 4.2.7.2.686 [id number] [facility] 2021-05-11 00:00:00 2021-05-11 00:00:00 Telephone Bernadette Badilloeva Fernandez [facility] Office Building One 1..114 350.1.13.10 4.2.7.2.686 [id number] [facility] 2021-05-05 00:00:00 2021-05-05 00:00:00 Orders Only Doctor Unassigned, [place] [facility] ..114 350.1.13.10 4.2.7.2.686 [id number] [facility] 2021-05-04 00:00:00 2021-05-04 00:00:00 Telephone Bryan Badillo Jim [facility] Office Building One ..114 350.1.13.10 4.2.7.2.686 [id number] [facility] 2021-04-13 15:47:58 2021-04-13 16:07:58 Dermatology Nurse Practitioner Visit Lab, Adc Fam Pob I Bryan Badillo [facility] Office Building One 1.114 350.1.13.10 4.2.7.2.686 [id number] [facility] 2021-04-13 14:20:06 2021-04-13 15:54:07 Office Visit Bryan Badillo [facility] Office Building One 1.114 350.1.13.10 4.2.7.2.686 [id number] [facility] 2021-04-13 14:30:00 2021-04-13 14:30:00 Outpatient R SCOTT BADILLOEVA [facility] [id number] [facility] 2021-04-13 00:00:00 2021-04-13 00:00:00 Orders Only Doctor Unassigned, [place] [facility] 1.114 350.1.13.10 4.2.7.2.686 [id number] [facility] 2021-03-18 11:20:00 2021-03-18 11:20:00 Outpatient R DARSHAN FERNANDEZ [facility] [id number] [facility] 2020-11-02 00:00:00 2020-11-02 00:00:00 Orders Only Doctor Unassigned, [place] [facility] 1.84.114 350.1.13.10 4.2.7.2.686 [id number] [facility] 2020-10-05 14:11:00 2020-10-05 17:22:00 Emergency Rufina Bell [facility] 1.114 350.1.13.10 4.2.7.2.686 [id number] [facility] 2020-10-05 00:00:00 2020-10-05 00:00:00 Orders Only Doctor Unassigned, [place] [facility] 1.2.840.114 350.1.13.10 4.2.7.2.686 [id number] [facility] 2020-03-09 00:00:00 2020-03-09 00:00:00 Telephone Blas Avalos [facility] Building 1.2.840.114 350.1.13.10 4.2.7.2.686 [id number] [facility] 2020-03-06 00:00:00 2020-03-06 00:00:00 Telephone simi [facility] 1.2.840.114 350.1.13.10 4.2.7.2.686 [id number] [facility] 2020-03-05 11:18:47 2020-03-05 11:38:47 Urgent Care Pob1, Acute Care Clinic Kayley Lancaster [facility] Office Building One 1.2.840.114 350.1.13.10 4.2.7.2.686 [id number] [facility] 2020-03-05 11:20:00 2020-03-05 11:20:00 Outpatient R KAYLEY LANCASTER [facility] [id number] [facility] 2020-03-05 00:00:00 2020-03-05 00:00:00 Telephone Po, Acute Care Clinic [facility] Office Building One 1.2840.114 350.1.13.10 4.2.7.2.686 [id number] [facility] Results Test Description Test Time Test Comments Results Result Co mments Source [facility] Notes Date/Time Note Provider Source 2024-08-18 05:34:15 Pt dc'd home ambulatory. Pt v/u of dc instructions and following up with PCP. Prescriptions x3 provided. Bev Mc RN [facility] 2024-08-18 05:04:01 Pt arrives ambulatory to ED c/o back spasms. Says she has had a painful knot in the right upper part of her back, and last night her whole back has begun to spasm. Melani Bell RN [facility] 2024-08-18 04:57:00 Images from the original note were not included. [facility] Emergency Department Note Patient Name: Migue Zavala Date of : 1970 54 year old female Treatment Room: [place] [address]/[id number] Primary Care Physician: PATIENT DOES NOT HAVE A PCP Patient Escorted by: Self [9] Mode of Arrival: Personal means [1] EMS Treatment Prior to ED Arrival: UNDER TRIMMER treatment: None Travel and Exposure Screening: Symptoms Does patient have any of these symptoms?: (not recorded) Exposure Screening Has patient had contact with someone with a communicable disease in the last month?: (not recorded) Diseases exposed to:: (not recorded) Is Patient ?: (not recorded) Exposure Date: (not recorded) Chief Complaint: Chief Complaint Patient presents with Back Pain History of Present Illness: Migue Zavala is a 54 year old female with atraumatic back pain. History of same. Previous workup at [facility] in [place] with MRI. Plan for nerve block but not able to make it back into [place]. Pain worse over last couple of days. No FND or incontinence. 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 Alcohol Use Yes. Comments: rarely Drug Use No. Past Surgical History: Past Surgical History: Procedure Laterality Date HYSTERECTOMY ~2012 partial LAPAROSCOPIC GASTRIC SLEEVE (SHX) [place] ANES NERVE MUSC TENDON FASCIA&BURSA KNEE&/POPLT Left tendon repair RADICAL HYSTERECTOMY TUBAL LIGATION Review of Systems: Review of Systems Constitutional: Negative for fever. Genitourinary: Negative for bladder incontinence and difficulty urinating. Musculoskeletal: Positive for back pain. Negative for myalgias. Neurological: Negative for headaches. Physical Exam: ED Triage Vitals [08/18/24 0507] Weight 131.5 kg (290 lb) Actual or estimated Estimated by patient/family report Height 1.753 m (5' 9") BP (!) 162/102 Pulse 80 Resp 16 Temp 36.6 ?C (97.9 ?F) Temp source Oral SpO2 99 % Measured on Room air Physical Exam Constitutional: General: She is not in acute distress. Appearance: She is well-developed. HENT: Head: Normocephalic and atraumatic. Eyes: Pupils: Pupils are equal, round, and reactive to light. Cardiovascular: Rate and Rhythm: Normal rate. Pulmonary: Effort: Pulmonary effort is normal. Abdominal: General: There is no distension. Musculoskeletal: General: Tenderness present. No deformity or signs of injury. Normal range of motion. Cervical back: Normal range of motion. Thoracic back: Spasms present. Back: Comments: 2 large lipomas Skin: General: Skin is warm and dry. Neurological: Mental Status: She is alert and oriented to person, place, and time. Radiology: No orders to display Lab Results: Lab Results - No data to display EKG: If EKG completed, see Procedure Note. Orders and Treatments: No orders of the defined types were placed in this encounter. Orders Placed This Encounter Medications HYDROcodone-acetaminophen (NORCO) 10-325 mg tablet 1 tablet methocarbamoL (ROBAXIN) tablet 1,000 mg naproxen sodium 550 mg tablet methylPREDNISolone 4 mg tablets methocarbamoL 500 mg tablet First Provider Eval: ED Events None ED COURSE Diagnosis/Impression as of 08/18/24 0527 Radiculopathy of cervicothoracic region Procedures: Procedures MDM: Medical Decision Making Problems Addressed: Radiculopathy of cervicothoracic region: acute illness or injury Details: Patient had non-traumatic back pain. No hx of IVDA, immunocompromise, fever, saddle signs, or urinary complaints. Will manage medically with Anaprox, medrol, robaxin. Encourage movement. Follow up with pain managment if symptoms persist for further diagnostic workup and consideration of rhizotomy or ingections. Risk Prescription drug management. Flowsheet Documentation: Scoring Tools: No data recorded Disposition/Condition: ED Disposition ED Disposition Disch - Home Condition Stable Comment -- Discharge Medications: Patient's Medications START taking these medications METHOCARBAMOL 500 MG TABLET Take 1 tablet by mouth in the morning and 1 tablet at noon and 1 tablet in the evening. Do all this for 5 days. METHYLPREDNISOLONE 4 MG TABLETS Take by mouth SEE-INSTRUCTIONS. follow package directions NAPROXEN SODIUM 550 MG TABLET Take 1 tablet by mouth in the morning and 1 tablet in the evening. Take with meals. CONTINUE taking these medications which have NOT CHANGED ALBUTEROL 90 MCG/ACTUATION INHALER Inhale 2 Puffs every 4 (four) hours as needed for Wheezing or Shortness of Breath. CYCLOBENZAPRINE 10 MG TABLET DICYCLOMINE 20 MG TABLET Take 1 tablet by mouth every 6 (six) hours as needed for Abdominal pain. IBUPROFEN 800 MG TABLET Take 1 tablet by mouth every 8 (eight) hours. LORAZEPAM 1 MG TABLET Take 1 tablet by mouth as needed (x 1 dose 1 hr prior to MRI). NYSTATIN 100,000 UNIT/GRAM OINTMENT Apply to area(s) 2 (two) times daily. OMEPRAZOLE 20 MG TABLET 1 (one) time each day TRAMADOL 50 MG TABLET Take 1 tablet by mouth every 6 (six) hours as needed for Pain (scale 7-10). Indications: acute pain START taking Modified Medications as Prescribed No medications on file STOP taking these medications METHOCARBAMOL 750 MG TABLET Take 1 tablet by mouth 4 (four) times daily. Follow-up: Contact information for follow-up Matteo Horton MD Specialty: AN-ANESTHESIOLOGY [id number] [place] [address] [facility] [id number] [facility] Specialty: Emergency Medicine [address] [facility] [address] Instructions: If symptoms worsen as documented in the discharge Electronically signed by: Efe Orta DO 08/18/24 0527 [facility] 2023-07-25 14:51:54 Formatting of this n ote might be different from the original. PT D/C home. GCS15, VS stable, no ataxia noted. Given two prescriptions and D/C paperwork. Pt ambulatory at time of discharge. Pt educated on sciatica, med usage, follow up care, s/s worsening condition. Pt verbalized understanding. Work/school note was given. Nitza Rosario RN [facility] 2023-07-25 14:10:00 Formatting of this n ote might be different from the original. Patient to ED for low back pain that started yesterday while cooking at home. No falls or known injuries. Patient finished her shift today and decided to come in because all OTC meds are not working. Filemon Saini RN [facility]
[2024-09-25] MEDS ORDERED: LORazepam 2 MG/ML VIAL ONE (10:41)
--- NOTE | 2024-09-25 10:41 | RAD REPORT ---
EXAM: CT brain without contrast HISTORY: Left arm numbness COMPARISON: 2019 TECHNIQUE: Multiple contiguous axial images were obtained and a CT of the brain without contrast. Sagittal and coronal reformats were performed. Automated exposure control, adjustment of the mA and/or kV according to patient size, and/or itera tive reconstruction. Unless otherwise specified, incidental findings do not require dedicated imaging follow-u FINDINGS: An intracranial bleed is not seen Ventricles are normal caliber No extra-axial fluid collection noted No significant hypodensity within the brain No fluid within the visualized sinuses or mastoids noted. IMPRESSION: No acute intracranial abnormality noted. If the patient's symptoms persist MRI of the brain would be recommended. from the emergency room was notified at 10:37 AM September 25, 2024
[2024-09-25 10:57] LABS: Absolute Basophils 0.1 K/uL (0-0.5); Absolute Eosinophils 0.2 K/uL (0-0.5); Absolute Lymphocytes (CBC) 1.9 K/uL (0.7-4.9); Absolute Monocytes 0.5 K/uL (0.1-1.3); Absolute Neutrophil 3.8 K/uL (1.8-8.0); Basophils % 1.2 % (0-1.3); Eosinophils % 2.5 % (0-4.4); Hematocrit 37.2 % (36.0-45.0); Hemoglobin 11.7 g/dL (12.0-15.0); Lymphocytes % 29.9 % (15.3-44.8); MCH 28.4 pg (27.0-35.0); MCHC 31.5 g/dL (32.0-36.0); MCV 90.1 fL (80-100); MPV 9.6 fL (7.6-11.3); Monocytes % 7.3 % (3.3-12.3); Neutrophils % 59.1 % (41.7-73.7); Platelets 225 thou/uL (152-406); RBC Red Blood Cell Count 4.13 M/uL (3.86-4.86)
[2024-09-25 11:03] LABS: PT Prothrombin Time 11.8 SECONDS (9.4-12.5); PTT, Activated Partial Thromb 30.2 SECONDS (24.3-36.9); Protime INR 1.06
--- NOTE | 2024-09-25 11:50 | RAD REPORT ---
EXAMINATION: MRI BRAIN WITHOUT CONTRAST CLINICAL INDICATION: Left arm weakness TECHNIQUE: Multiplanar multisequence MR images of the brain were obtained without intravenous contras t. Unless otherwise specified, incidental findings do not require dedicated imaging follow-up. COMPARISON: September 24, [address] FINDINGS: No significant abnormal signal within the brain noted. Diffusion weighted/ADC mapping does not demons trate evidence of an acute infarction. Ventricles are normal caliber. No extra-axial fluid collection. No fluid within the sinuses/mastoid seen IMPRESSION: No acute abnormalities displayed
--- NOTE | 2024-09-25 11:50 | RAD REPORT ---
Procedure: Chest Single View HISTORY: Arm weakness COMPARISON: 2018 FINDINGS: The lungs appear clear of acute infiltrate. No significant pleural effusion noted. The heart is mildly enlarged. IMPRESSION: No acute abnormality is displayed.
[2024-09-25 12:22] LABS: Anion Gap 5.5 mEq/L (5.0-15.0); Potassium 4.5 mEq/L (3.5-5.1); Troponin High Sensitivity 5.3 pg/mL (<58.9)
--- NOTE | 2024-09-25 12:46 | EDPHYS ---
Physician Documentation [facility] Name: Kamila Zavala Age: 54 yrs Sex: Female : 1970 Arrival Date: 09/25/2024 Time: : Bed 17 Private MD: ED Physician Alexandro Hall HPI: 09/25 10:31 This 54 yrs old Female presents to ER via Unassigned with complaints of S/S of Possible rn Stroke - Sent by pcp. 10:31 The patient's problem is reported as paresthesias, in left upper extremity, weakness, rn in the left upper extremity. Onset: The symptoms/episode began/occurred Became aware of symptoms upon awakening. Duration: The episode is continuous. The symptoms are alleviated by nothing. The symptoms are aggravated by nothing. Severity of symptoms: At their worst the symptoms were moderate in the emergency department the symptoms are unchanged. The patient has not experienced similar symptoms in the past. Patient reports went to bed normal last night. Woke up already with numbness and weakness of the left upper extremity. No previous stroke in the past. No neck problems. No injury. No weakness or numbness of the left lower extremity. No facial weakness. No speech or vision problem.. Historical: - Allergies: 10: Iodine; cm10 - PMHx: 10:31 Bronchitis; GERD; uterine fibroids; Anxiety; Depressive disorder; cm10 - Immunization history:: Adult Immunizations up to date. - Infectious Disease History:: Denies. - Social history:: Smoking status: unknown. - Family history:: not pertinent. - Hospitalizations: : No recent hospitalization is reported. ROS: 10:31 Constitutional: Negative for fever, chills, and weight loss, Neck: Negative for injury, rn pain, and swelling, Cardiovascular: Negative for chest pain, palpitations, and edema, Respiratory: Negative for shortness of breath, cough, wheezing, and pleuritic chest pain, Abdomen/GI: Negative for abdominal pain, nausea, vomiting, diarrhea, and constipation, Back: Negative for injury and pain, MS/Extremity: Negative for injury and deformity, Skin: Negative for injury, rash, and discoloration, Neuro: Positive for weakness and numbness to the left arm Exam: 10:31 Constitutional: This is a well developed, well nourished patient who is awake, alert, rn and in no acute distress. Head/Face: Normocephalic, atraumatic. Cardiovascular: Regular rate and rhythm. No pulse deficits. Respiratory: No increased work of breathing, no retractions or nasal flaring. Abdomen/GI: Soft, non-tender MS/ Extremity: Pulses equal, no cyanosis. Neuro: Awake and alert, GCS 15, oriented to person, place, time, and situation. Cranial nerves II-XII grossly intact. Mild left upper extremity drift but does not strike bed. Decreased sensation to left arm. 17:29 ECG was reviewed by the Attending Physician. rn Vital Signs: 10:29 BP 150 / 98; Pulse 88; Resp 18; Pulse Ox 100% on R/A; Weight 136.98 kg; Height 5 ft. 9 cm10 in. ; 11:00 BP 150 / 95; Pulse 87; Resp 16; Pulse Ox 100% ; bp 11:30 BP 144 / 78; Pulse 79; Resp 16; Pulse Ox 99% ; bp 13:00 BP 126 / 75; Pulse 75; Resp 16; Temp 98; Pulse Ox 100% ; bp 10:29 Body Mass Index 44.60 (136.98 kg, 175.26 cm) cm10 NIH Stroke Scale Scores: 10:30 NIHSS Score: 2 bp 10:31 NIHSS Score: 2 rn 11:30 NIHSS Score: 1 bp 12:00 NIHSS Score: 1 bp 12:30 NIHSS Score: 1 bp 13:00 NIHSS Score: 1 bp MDM: 10:24 Medical Screening Exam initiated rn 10:31 ED course: Patient with NIH of 2, woke up with symptoms, last known normal last night, rn outside of TNK window, will not receive TNK.. 10:37 ED course: CT head no acute findings per Dr. Hernández. rn 12:42 Differential diagnosis: CVA, TIA, metabolic disorder, Radiculopathy. Data reviewed: rn vital signs, nurses notes, lab test result(s), radiologic studies, CT scan, MRI, and as a result, I will discharge patient. Counseling: I had a detailed discussion with the patient and/or guardian regarding the historical points, exam findings, and any diagnostic results supporting the discharge/admit diagnosis, lab results, radiology results, the need for outpatient follow up, to return to the emergency department if symptoms worsen or persist or if there are any questions or concerns that arise at home. Special discussion: I discussed with the patient/guardian in detail that at this point there is no indication for admission to the hospital. It is understood, however, that if the symptoms persist or worsen the patient needs to return immediately for re-evaluation. Based on the history and exam findings, there is no indication for further emergent testing or inpatient evaluation. I discussed with the patient/guardian the need to see the neurologist for further evaluation of the symptoms. 12:45 ED course: MRI brain negative for acute infarct.. rn 09/25 10:28 Order name: Basic Metabolic Panel; Complete Time: 12: rn 09/25 10:28 Order name: CBC with Diff; Complete Time: : rn 09/25 10:28 Order name: High Sensitivity Troponin; Complete Time: rn 09/25 10:28 Order name: Protime (+inr); Complete Time: 12: rn 09/25 10:28 Order name: Ptt, Activated; Complete Time: 12: rn 09/25 11:09 Order name: Glucose, Ancillary Testing; Complete Time: 12:33 EDMS 09/25 10:28 Order name: CT Stroke Brain w/o Contrast; Complete Time: 12: rn 09/25 10:28 Order name: Stroke CXR 1 View; Complete Time: : rn 09/25 10:29 Order name: Brain Wo Cont MRI; Complete Time: rn 09/25 10:28 Order name: Accucheck; Complete Time: rn 09/25 10:28 Order name: Cardiac monitoring; Complete Time: rn 09/25 10:28 Order name: EKG - Nurse/Tech; Complete Time: rn 09/25 10:28 Order name: IV [place] Lock; Complete Time: rn 09/25 10:28 Order name: Labs collected and sent; Complete Time: rn 09/25 10:28 Order name: NPO; Complete Time: rn 09/25 10:28 Order name: O2 Per Protocol; Complete Time: rn 09/25 10:28 Order name: O2 Sat Monitoring; Complete Time: rn 09/25 10:28 Order name: Stroke Swallow Screen; Complete Time: rn 09/25 11:04 Order name: Labs - recollect needed: recollect green top; Complete Time: 11:41 bd EC:29 Rate is 81 beats/min. Rhythm is regular. QRS [place] is Normal. [place] interval is normal. QRS rn interval is normal. QT interval is normal. No Q waves. T waves are Normal. No ST changes noted. Clinical impression: Normal ECG. Interpreted by me. Reviewed by me. Administered Medications: 10:49 Drug: Ativan IVP 0.5 mg IVP once Route: IVP; Site: right antecubital; bp 10:51 Follow up: Response: No adverse reaction bp Disposition Summary: 09/25/24 12:45 Discharge Ordered Notes: Location: Home rn Problem: new rn Symptoms: have improved rn Condition: Stable rn Diagnosis - Paresthesia of skin rn - Radiculopathy, cervical region rn Followup: rn - With: Private Physician - When: As needed - Reason: Recheck today's complaints, Re-evaluation by your physician Discharge Instructions: - Discharge Summary Sheet rn - Cervical Radiculopathy rn - Neuropathic Pain rn - Paresthesia rn Forms: - Work release form bd - Medication Reconciliation Form rn - Antibiotic business 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 Dysarthria (speech clarity - read or repeat words) - 0(Normal) 11. Extinction and Inattention (visual/tactile/auditory/spatial/personal) - 0(No abnormality) 1a. Level of Consciousness (LOC) - 0(Alert) 1b. Level of Consciousness (LOC) (Month \T\ Age) - 0(Both) 1c. LOC Commands (Open \T\ Closes Eyes/Audit Specialist) - 0(Both) 2. Best Gaze (Lateral Gaze Paresis) - 0(Normal) 3. Visual Field Loss - 0(No visual loss) 4. Facial Palsy - 0(Normal) 5a. Left Arm: Motor (10-second hold) - 1(Drift) 5b. Right Arm: Motor (10-second hold) - 0(No drift) 6a. Left Leg: Motor (5-second hold - always test supine) - 0(No drift) 6b. Right Leg: Motor (5-second hold - always test supine) - 0(No drift) 7. Limb Ataxia (finger/nose \T\ heel/parra - test with eyes open) - 0(Absent) 8. Sensory Loss (pinprick arms/legs/face) - 1(Mild to moderate loss) 9. Best Language: Aphasia (description/naming/reading) - 0(No aphasia) Initials: bp NIH Stroke Scale - NIH Stroke Score Date: 09/25/2024 Time: 10:31 Total Score = 2 10. Dysarthria (speech clarity - read or repeat words) - 0(Normal) 11. Extinction and Inattention (visual/tactile/auditory/spatial/personal) - 0(No abnormality) 1a. Level of Consciousness (LOC) - 0(Alert) 1b. Level of Consciousness (LOC) (Month \T\ Age) - 0(Both) 1c. LOC Commands (Open \T\ Closes Eyes/Audit Specialist) - 0(Both) 2. Best Gaze (Lateral Gaze Paresis) - 0(Normal) 3. Visual Field Loss - 0(No visual loss) 4. Facial Palsy - 0(Normal) 5a. Left Arm: Motor (10-second hold) - 1(Drift) 5b. Right Arm: Motor (10-second hold) - 0(No drift) 6a. Left Leg: Motor (5-second hold - always test supine) - 0(No drift) 6b. Right Leg: Motor (5-second hold - always test supine) - 0(No drift) 7. Limb Ataxia (finger/nose \T\ heel/parra - test with eyes open) - 0(Absent) 8. Sensory Loss (pinprick arms/legs/face) - 1(Mild to moderate loss) 9. Best Language: Aphasia (description/naming/reading) - 0(No aphasia) Initials: rn NIH Stroke Scale - NIH Stroke Score Date: 09/25/2024 Time: Total Score = 1 10. Dysarthria (speech clarity - read or repeat words) - 0(Normal) 11. Extinction and Inattention (visual/tactile/auditory/spatial/personal) - 0(No abnormality) 1a. Level of Consciousness (LOC) - 0(Alert) 1b. Level of Consciousness (LOC) (Month \T\ Age) - 0(Both) 1c. LOC Commands (Open \T\ Closes Eyes/Audit Specialist) - 0(Both) 2. Best Gaze (Lateral Gaze Paresis) - 0(Normal) 3. Visual Field Loss - 0(No visual loss) 4. Facial Palsy - 0(Normal) 5a. Left Arm: Motor (10-second hold) - 0(No drift) 5b. Right Arm: Motor (10-second hold) - 0(No drift) 6a. Left Leg: Motor (5-second hold - always test supine) - 0(No drift) 6b. Right Leg: Motor (5-second hold - always test supine) - 0(No drift) 7. Limb Ataxia (finger/nose \T\ heel/parra - test with eyes open) - 0(Absent) 8. Sensory Loss (pinprick arms/legs/face) - 1(Mild to moderate loss) 9. Best Language: Aphasia (description/naming/reading) - 0(No aphasia) Initials: bp NIH Stroke Scale - NIH Stroke Score Date: 09/25/2024 Time: 12:00 Total Score = 1 10. Dysarthria (speech clarity - read or repeat words) - 0(Normal) 11. Extinction and Inattention (visual/tactile/auditory/spatial/personal) - 0(No abnormality) 1a. Level of Consciousness (LOC) - 0(Alert) 1b. Level of Consciousness (LOC) (Month \T\ Age) - 0(Both) 1c. LOC Commands (Open \T\ Closes Eyes/Audit Specialist) - 0(Both) 2. Best Gaze (Lateral Gaze Paresis) - 0(Normal) 3. Visual Field Loss - 0(No visual loss) 4. Facial Palsy - 0(Normal) 5a. Left Arm: Motor (10-second hold) - 0(No drift) 5b. Right Arm: Motor (10-second hold) - 0(No drift) 6a. Left Leg: Motor (5-second hold - always test supine) - 0(No drift) 6b. Right Leg: Motor (5-second hold - always test supine) - 0(No drift) 7. Limb Ataxia (finger/nose \T\ heel/parra - test with eyes open) - 0(Absent) 8. Sensory Loss (pinprick arms/legs/face) - 1(Mild to moderate loss) 9. Best Language: Aphasia (description/naming/reading) - 0(No aphasia) Initials: NIH Stroke Scale - NIH Stroke Score Date: 09/25/2024 Time: 12:30 Total Score = 1 10. Dysarthria (speech clarity - read or repeat words) - 0(Normal) 11. Extinction and Inattention (visual/tactile/auditory/spatial/personal) - 0(No abnormality) 1a. Level of Consciousness (LOC) - 0(Alert) 1b. Level of Consciousness (LOC) (Month \T\ Age) - 0(Both) 1c. LOC Commands (Open \T\ Closes Eyes/Audit Specialist) - 0(Both) 2. Best Gaze (Lateral Gaze Paresis) - 0(Normal) 3. Visual Field Loss - 0(No visual loss) 4. Facial Palsy - 0(Normal) 5a. Left Arm: Motor (10-second hold) - 0(No drift) 5b. Right Arm: Motor (10-second hold) - 0(No drift) 6a. Left Leg: Motor (5-second hold - always test supine) - 0(No drift) 6b. Right Leg: Motor (5-second hold - always test supine) - 0(No drift) 7. Limb Ataxia (finger/nose \T\ heel/parra - test with eyes open) - 0(Absent) 8. Sensory Loss (pinprick arms/legs/face) - 1(Mild to moderate loss) 9. Best Language: Aphasia (description/naming/reading) - 0(No aphasia) Initials: NIH Stroke Scale - NIH Stroke Score Date: 09/25/2024 Time: 13:00 Total Score = 1 10. Dysarthria (speech clarity - read or repeat words) - 0(Normal) 11. Extinction and Inattention (visual/tactile/auditory/spatial/personal) - 0(No abnormality) 1a. Level of Consciousness (LOC) - 0(Alert) 1b. Level of Consciousness (LOC) (Month \T\ Age) - 0(Both) 1c. LOC Commands (Open \T\ Closes Eyes/Audit Specialist) - 0(Both) 2. Best Gaze (Lateral Gaze Paresis) - 0(Normal) 3. Visual Field Loss - 0(No visual loss) 4. Facial Palsy - 0(Normal) 5a. Left Arm: Motor (10-second hold) - 0(No drift) 5b. Right Arm: Motor (10-second hold) - 0(No drift) 6a. Left Leg: Motor (5-second hold - always test supine) - 0(No drift) 6b. Right Leg: Motor (5-second hold - always test supine) - 0(No drift) 7. Limb Ataxia (finger/nose \T\ heel/parra - test with eyes open) - 0(Absent) 8. Sensory Loss (pinprick arms/legs/face) - 1(Mild to moderate loss) 9. Best Language: Aphasia (description/naming/reading) - 0(No aphasia) Initials: bp Signatures: Dispatcher [employer] EDMS Sydney Bonilla Roman, MD MD rn [place], Isaac, RN RN Dulce Tariq RN RN cm10 Corrections: (The following items were deleted from the chart) 10:28 10:28 CT-STROKE BRAIN W/O CONTRAST+CT.RAD.BRZ ordered. EDMS EDMS 10:29 10:29 Chest Single View+RAD.RAD.BRZ ordered. EDMS EDMS 10:43 10:28 Neck Angio+CT.RAD.BRZ ordered. EDMS EDMS
--- NOTE | 2024-09-25 12:46 | ER ---
Nurse's Notes [facility] Name: Kamila Zavala Age: 54 yrs Sex: Female : 1970 Arrival Date: 09/25/2024 Time: 10:19 Bed 17 Private MD: Diagnosis: Paresthesia of skin;Radiculopathy, cervical region Presentation: 09/25 10:29 Chief complaint: Patient states: Left arm numbness and weakness onset this morning. PT cm10 states that when she went to bed last night she was normal. Pt describes it as a heaviness. Coronavirus screen: Client denies travel out of the [place] in the last 14 days. Ebola Screen: Patient denies travel to an Ebola-affected area in the 21 days before illness onset. No symptoms or risks identified at this time. An acute neurological deficit is present. The charge nurse has been notified. The patient has been moved to a treatment area. Initial Sepsis Screen: Does the patient meet any 2 criteria? No. Patient's initial sepsis screen is negative. Does the patient have a suspected source of infection? No. Patient's initial sepsis screen is negative. Risk Assessment: Do you want to hurt yourself or someone else? Patient reports no desire to harm self or others. Onset of symptoms was September 25, 2024. 10:29 Method Of Arrival: Ambulatory cm10 10:29 Acuity: PHOEBE 2 cm10 10:30 Pre-hospital glucose is not applicable to this patient. bp Triage Assessment: 10:32 General: Appears in no apparent distress. comfortable, Behavior is calm, cooperative. cm10 Neuro: No deficits noted. Level of Consciousness is awake, alert, obeys commands, Oriented to person, place, time, situation, Appropriate for age Reports numbness in left arm weakness in left arm. Respiratory: No deficits noted. Airway is patent Respiratory effort is even, unlabored, Respiratory pattern is regular, symmetrical. 10:35 The onset of the patients symptoms was September 24, 2024 at 21:00. bp Stroke Activation: Physician: ED Attending; Name: Dr. Hall; Notified At: 10:27; Arrived At: 10:27 Physician: Mid-Level Provider; Name: ; Notified At: 10:27; Arrived At: Physician: [not used]; Name: ; Notified At: ; Arrived At: Physician: [not used]; Name: ; Notified At: ; Arrived At: Physician: [not used]; Name: ; Notified At: ; Arrived At: Historical: - Allergies: 10:31 Iodine; cm10 - PMHx: 10:31 Bronchitis; GERD; uterine fibroids; Anxiety; Depressive disorder; cm10 - Immunization history:: Adult Immunizations up to date. - Infectious Disease History:: Denies. - Social history:: Smoking status: unknown. - Family history:: not pertinent. - Hospitalizations: : No recent hospitalization is reported. Screenin:32 [facility] ED Fall Risk Assessment (Adult) History of falling in the last 3 months, bp including since admission No falls in past 3 months (0 pts) Confusion or Disorientation No (0 pts) Intoxicated or Sedated No (0 pts) Impaired Gait No (0 pts) Mobility Assist Device Used No (0 pt) Altered Elimination No (0 pt) Score/Fall Risk Level 0 - 2 = Low Risk. Abuse screen: Denies threats or abuse. Denies injuries from another. Nutritional screening: No deficits noted. Tuberculosis screening: No symptoms or risk factors identified. Assessment: 10:28 Reassessment: CODE STROKE CALLED. PT TO CT. bp 10:30 VAN Scoring: Arm Drift: Patients demonstrates NO arm weakness. Patient is VAN Negative. bp Kiera Swallow Protocol Exclusion Criteria: Unable to remain alert for testing: No NPO for medical/surgical reason by provider order No Head-of-bed restricted <30 degrees Tracheostomy tube present No No thin liquids due to preexisting dysphagia/baseline modified diet thickened liquids No Exclusion Criteria Result: Proceed Brief Cognitive Screen What is your name? Normal, Where are you right now? Normal, What year is it? Normal. Oral Mechanism Examination Facial Symmetry: Normal, Motion: Normal, Lip Closure: Normal, Oral Mechanism Result: Normal. 3 oz Water Swallow Challenge: Pt able to drink all water without stopping, coughing, choking or throat clearing: Yes Result: BRANNON REYES Notified: Alexandro Hall MD. TNKase (Tenecteplase) Screening: Indications: Definite evidence of stroke, ischemic, embolic, or hypertensive: Yes. Treatment will start within 4.5 hours onset of symptoms: Yes. Contraindications: Rapidly improving condition or minor deficit:. General: Appears in no apparent distress. comfortable, Behavior is calm, cooperative, appropriate for age. Pain: Denies pain. Neuro: Reports numbness in left arm. Cardiovascular: Rhythm is sinus rhythm. Respiratory: No deficits noted. GI: No signs and/or symptoms were reported involving the gastrointestinal system. : No signs and/or symptoms were reported regarding the genitourinary system. EENT: No deficits noted. Derm: No deficits noted. Musculoskeletal: No deficits noted. 10:59 Reassessment: PT TO MRI. bp 11:30 Reassessment: PT RETURNED FROM MRI. bp 13:00 Reassessment: Patient appears in no apparent distress at this time. Patient is alert, bp oriented x 3, equal unlabored respirations, skin warm/dry/pink. Vital Signs: 10:29 BP 150 / 98; Pulse 88; Resp 18; Pulse Ox 100% on R/A; Weight 136.98 kg; Height 5 ft. 9 cm10 in. ; 11:00 BP 150 / 95; Pulse 87; Resp 16; Pulse Ox 100% ; bp 11:30 BP 144 / 78; Pulse 79; Resp 16; Pulse Ox 99% ; bp 13:00 BP 126 / 75; Pulse 75; Resp 16; Temp 98; Pulse Ox 100% ; bp 10:29 Body Mass Index 44.60 (136.98 kg, 175.26 cm) cm10 NIH Stroke Scale Scores: 10:30 NIHSS Score: 2 bp 10:31 NIHSS Score: 2 rn 11:30 NIHSS Score: 1 bp 12:00 NIHSS Score: 1 bp 12:30 NIHSS Score: 1 bp 13:00 NIHSS Score: 1 bp ED Course: 10:20 Patient arrived in ED. ra3 10:24 Alexandro Hall MD is Attending Physician. rn 10:30 Isaac Downing, KIRILL is Primary Nurse. bp 10:31 Triage completed. cm10 10:32 Patient has correct armband on for positive identification. bp 10:33 Arm band placed on left wrist. Patient placed in an exam room, on a stretcher. cm10 10:36 CT Stroke Brain w/o Contrast In Process Unspecified. EDMS 10:45 Inserted saline lock: 20 gauge in right antecubital area, using aseptic technique. bp Blood collected. Flushed with 10 mL NS. 11:30 Brain Wo Cont MRI In Process Unspecified. EDMS 11:35 Stroke CXR 1 View In Process Unspecified. EDMS 13:01 No provider procedures requiring assistance completed. IV discontinued, intact, bp bleeding controlled, No redness/swelling at site. Pressure dressing applied. Administered Medications: 10:49 Drug: Ativan IVP 0.5 mg IVP once Route: IVP; Site: right antecubital; bp 10:51 Follow up: Response: No adverse reaction bp Medication: 10:30 VIS not applicable for this client. bp Outcome: 12:45 Discharge ordered by . rn 13:01 Discharged to home ambulatory, with family, bp 13:01 Condition: stable 13:01 Discharge instructions given to patient, Instructed on discharge instructions, follow up and referral plans. medication usage, Demonstrated understanding of instructions, follow-up care, medications, Prescriptions given X 1, 13:02 Patient left the ED. bp NIH Stroke Scale - NIH Stroke Score Date: 09/25/2024 Time: 10:30 Total Score = 2 10. Dysarthria (speech clarity - read or repeat words) - 0(Normal) 11. Extinction and Inattention (visual/tactile/auditory/spatial/personal) - 0(No abnormality) 1a. Level of Consciousness (LOC) - 0(Alert) 1b. Level of Consciousness (LOC) (Month \T\ Age) - 0(Both) 1c. LOC Commands (Open \T\ Closes Eyes/Wired Music Operator) - 0(Both) 2. Best Gaze (Lateral Gaze Paresis) - 0(Normal) 3. Visual Field Loss - 0(No visual loss) 4. Facial Palsy - 0(Normal) 5a. Left Arm: Motor (10-second hold) - 1(Drift) 5b. Right Arm: Motor (10-second hold) - 0(No drift) 6a. Left Leg: Motor (5-second hold - always test supine) - 0(No drift) 6b. Right Leg: Motor (5-second hold - always test supine) - 0(No drift) 7. Limb Ataxia (finger/nose \T\ heel/parra - test with eyes open) - 0(Absent) 8. Sensory Loss (pinprick arms/legs/face) - 1(Mild to moderate loss) 9. Best Language: Aphasia (description/naming/reading) - 0(No aphasia) Initials: bp NIH Stroke Scale - NIH Stroke Score Date: 09/25/2024 Time: 10:31 Total Score = 2 10. Dysarthria (speech clarity - read or repeat words) - 0(Normal) 11. Extinction and Inattention (visual/tactile/auditory/spatial/personal) - 0(No abnormality) 1a. Level of Consciousness (LOC) - 0(Alert) 1b. Level of Consciousness (LOC) (Month \T\ Age) - 0(Both) 1c. LOC Commands (Open \T\ Closes Eyes/Wired Music Operator) - 0(Both) 2. Best Gaze (Lateral Gaze Paresis) - 0(Normal) 3. Visual Field Loss - 0(No visual loss) 4. Facial Palsy - 0(Normal) 5a. Left Arm: Motor (10-second hold) - 1(Drift) 5b. Right Arm: Motor (10-second hold) - 0(No drift) 6a. Left Leg: Motor (5-second hold - always test supine) - 0(No drift) 6b. Right Leg: Motor (5-second hold - always test supine) - 0(No drift) 7. Limb Ataxia (finger/nose \T\ heel/parra - test with eyes open) - 0(Absent) 8. Sensory Loss (pinprick arms/legs/face) - 1(Mild to moderate loss) 9. Best Language: Aphasia (description/naming/reading) - 0(No aphasia) Initials: rn NIH Stroke Scale - NIH Stroke Score Date: 09/25/2024 Time: 11:30 Total Score = 1 10. Dysarthria (speech clarity - read or repeat words) - 0(Normal) 11. Extinction and Inattention (visual/tactile/auditory/spatial/personal) - 0(No abnormality) 1a. Level of Consciousness (LOC) - 0(Alert) 1b. Level of Consciousness (LOC) (Month \T\ Age) - 0(Both) 1c. LOC Commands (Open \T\ Closes Eyes/Wired Music Operator) - 0(Both) 2. Best Gaze (Lateral Gaze Paresis) - 0(Normal) 3. Visual Field Loss - 0(No visual loss) 4. Facial Palsy - 0(Normal) 5a. Left Arm: Motor (10-second hold) - 0(No drift) 5b. Right Arm: Motor (10-second hold) - 0(No drift) 6a. Left Leg: Motor (5-second hold - always test supine) - 0(No drift) 6b. Right Leg: Motor (5-second hold - always test supine) - 0(No drift) 7. Limb Ataxia (finger/nose \T\ heel/parra - test with eyes open) - 0(Absent) 8. Sensory Loss (pinprick arms/legs/face) - 1(Mild to moderate loss) 9. Best Language: Aphasia (description/naming/reading) - 0(No aphasia) Initials: bp NIH Stroke Scale - NIH Stroke Score Date: 09/25/2024 Time: 12:00 Total Score = 1 10. Dysarthria (speech clarity - read or repeat words) - 0(Normal) 11. Extinction and Inattention (visual/tactile/auditory/spatial/personal) - 0(No abnormality) 1a. Level of Consciousness (LOC) - 0(Alert) 1b. Level of Consciousness (LOC) (Month \T\ Age) - 0(Both) 1c. LOC Commands (Open \T\ Closes Eyes/Wired Music Operator) - 0(Both) 2. Best Gaze (Lateral Gaze Paresis) - 0(Normal) 3. Visual Field Loss - 0(No visual loss) 4. Facial Palsy - 0(Normal) 5a. Left Arm: Motor (10-second hold) - 0(No drift) 5b. Right Arm: Motor (10-second hold) - 0(No drift) 6a. Left Leg: Motor (5-second hold - always test supine) - 0(No drift) 6b. Right Leg: Motor (5-second hold - always test supine) - 0(No drift) 7. Limb Ataxia (finger/nose \T\ heel/parra - test with eyes open) - 0(Absent) 8. Sensory Loss (pinprick arms/legs/face) - 1(Mild to moderate loss) 9. Best Language: Aphasia (description/naming/reading) - 0(No aphasia) Initials: NIH Stroke Scale - NIH Stroke Score Date: 09/25/2024 Time: 12:30 Total Score = 1 10. Dysarthria (speech clarity - read or repeat words) - 0(Normal) 11. Extinction and Inattention (visual/tactile/auditory/spatial/personal) - 0(No abnormality) 1a. Level of Consciousness (LOC) - 0(Alert) 1b. Level of Consciousness (LOC) (Month \T\ Age) - 0(Both) 1c. LOC Commands (Open \T\ Closes Eyes/Wired Music Operator) - 0(Both) 2. Best Gaze (Lateral Gaze Paresis) - 0(Normal) 3. Visual Field Loss - 0(No visual loss) 4. Facial Palsy - 0(Normal) 5a. Left Arm: Motor (10-second hold) - 0(No drift) 5b. Right Arm: Motor (10-second hold) - 0(No drift) 6a. Left Leg: Motor (5-second hold - always test supine) - 0(No drift) 6b. Right Leg: Motor (5-second hold - always test supine) - 0(No drift) 7. Limb Ataxia (finger/nose \T\ heel/parra - test with eyes open) - 0(Absent) 8. Sensory Loss (pinprick arms/legs/face) - 1(Mild to moderate loss) 9. Best Language: Aphasia (description/naming/reading) - 0(No aphasia) Initials: bp NIH Stroke Scale - NIH Stroke Score Date: 09/25/2024 Time: 13:00 Total Score = 1 10. Dysarthria (speech clarity - read or repeat words) - 0(Normal) 11. Extinction and Inattention (visual/tactile/auditory/spatial/personal) - 0(No abnormality) 1a. Level of Consciousness (LOC) - 0(Alert) 1b. Level of Consciousness (LOC) (Month \T\ Age) - 0(Both) 1c. LOC Commands (Open \T\ Closes Eyes/Wired Music Operator) - 0(Both) 2. Best Gaze (Lateral Gaze Paresis) - 0(Normal) 3. Visual Field Loss - 0(No visual loss) 4. Facial Palsy - 0(Normal) 5a. Left Arm: Motor (10-second hold) - 0(No drift) 5b. Right Arm: Motor (10-second hold) - 0(No drift) 6a. Left Leg: Motor (5-second hold - always test supine) - 0(No drift) 6b. Right Leg: Motor (5-second hold - always test supine) - 0(No drift) 7. Limb Ataxia (finger/nose \T\ heel/parra - test with eyes open) - 0(Absent) 8. Sensory Loss (pinprick arms/legs/face) - 1(Mild to moderate loss) 9. Best Language: Aphasia (description/naming/reading) - 0(No aphasia) Initials: bp Signatures: Dispatcher [employer] Alexandro Carter MD MD rn Peltier, Brian RN RN Dulce Tariq RN RN Tameka Cortez 3 Corrections: (The following items were deleted from the chart) 10:58 10:30 NIHSS Score: 1 bp bp 10:58 10:57 NIHSS Score: 3 bp bp
[2024-09-25 13:14] VITALS: BP 144/78; O2SAT 99
--- NOTE | 2024-09-26 11:10 | EKG ---
Test Date: 2024-09-25 Test Time: 10:50:06 Pattern Vault Clerk: BP MEASUREMENT RESULTS: Intervals: Rate: 81 AL: 188 QRSD: 88 QT: 384 QTc: 446 Rives: P: 24 AL: 188 QRS: -17 T: -2 INTERPRETIVE STATEMENTS: Normal sinus rhythm Normal ECG Compared to ECG 09/04/2018 08:21:54 No significant changes Electronically Signed On 09-26-24 11:07:53 CDT by Joaquin Arguelles
== END 2024-09-25 13:02 | disposition home or self-care (01) ==
LOC: ER 10:19
DX: M54.12 Radiculopathy, cervical region (principal); R53.1 Weakness; R29.702 NIHSS score 2
CPT/HCPCS: 36415; 70450; 70551; 71045; 80048; 82947; 84484; 85025; 85610; 85730; 93005; 96374; 99285